=== PATIENT | female | born 1945 | race African-American/Black ===

== ENCOUNTER 2019-02-19 19:04 | Inpatient (IN) | payer OTHER ==
[2019-02-19 19:22] VITALS: BMI 22.6
--- NOTE | 2019-02-19 19:22 | PDOC ---
Rapid Medical Evaluation Medical Evaluation: 02/19/19 19:19 Pt presents for midsternal chest pain starting one week ago. The pain is intermittent. Last had the pain around 5pm today. Pain is worse laying down. Admits to mild associated shortness of breath Exam: NAD, S1S2 present rrr, (-) m/r/g Orders: cardiac work up Pt to proceed to the ER for further evaluation
[2019-02-19 20:19] VITALS: TEMP 98
[2019-02-19 20:33] LABS: BASO % 1.3 % (0-2.0); EOS % 2.6 % (0-4.5); HEMATOCRIT 41.5 % (32.4-45.2); HEMOGLOBIN 13.6 GM/dL (10.7-15.3); LYMPH % 48.8 % (8-40); MCH 31.3 pg (25.7-33.7); MCHC 32.7 g/dl (32.0-36.0); MEAN CELL VOLUME 95.8 fl (80-96); MEAN PLT VOLUME 8.3 fl (7.5-11.1); MONO % 11.6 % (3.8-10.2); NEUT % 35.7 % (42.8-82.8); PLATELET COUNT 265 K/MM3 (134-434); RBC 4.33 M/mm3 (3.60-5.2); RDW 14.1 % (11.6-15.6)
[2019-02-19 20:38] LABS: EPI CELLS 2.1 /HPF (0-5/HPF); HYALINE CASTS 4 /lpf (0-8); URINE APPEARANCE CLEAR; URINE BACTERIA 5.2 /hpf (NEGATIVE); URINE BILIRUBIN NEGATIVE (NEGATIVE); URINE COLOR YELLOW; URINE GLUCOSE (UA) NEGATIVE (NEGATIVE); URINE KETONE TRACE (NEGATIVE); URINE LEUK ESTERASE 1+ (NEGATIVE); URINE NITRITE NEGATIVE (NEGATIVE); URINE PROTEIN NEGATIVE (NEGATIVE); URINE RBC 1 /hpf (0-4); URINE WBC 2 /hpf (0-5)
[2019-02-19 20:57] LABS: INR 1.03 (0.83-1.09); PROTHROMBIN TIME (PATIENT) 12.2 SEC (9.7-13.0)
[2019-02-19 21:07] LABS: ALBUMIN 3.6 g/dl (3.4-5.0); ALK PHOS 98 U/L (45-117); ANION GAP 4 MMOL/L (8-16); BILIRUBIN,TOTAL 0.4 mg/dL (0.2-1); BLOOD UREA NITROGEN 13.8 mg/dL (7-18); CALCIUM 9.4 mg/dL (8.5-10.1); CHLORIDE 108 mmol/L (98-107); CO2 29 mmol/L (21-32); CREATININE 0.9 mg/dL (0.55-1.3); GLUCOSE,RANDOM 102 mg/dL (74-106); MAGNESIUM 2.5 mg/dL (1.8-2.4); POTASSIUM 4.7 mmol/L (3.5-5.1); SGOT/AST 20 U/L (15-37); SGPT/ALT 24 U/L (13-61); SODIUM 142 mmol/L (136-145); TOT PROT 7.2 g/dl (6.4-8.2)
--- NOTE | 2019-02-19 21:13 | PDOC ---
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 Pt states she has never felt this pain before, started suddenly, lasts for a couple hours and self resolves. Denies active current CP, palpitations, N/V/F/C, back pain, SOB, calf tenderness, recent travel, changes in bowel or bladder habits Past History - Past Medical History Allergies/Adverse Reactions: Allergies Allergy/AdvReac Type Severity Reaction Status Date / Time No Known Allergies Allergy Verified 02/19/19 19:19 Home Medications: Ambulatory Orders Metoprolol Tartrate 100 mg PO BID 02/19/19 COPD: No HTN: Yes Hypercholesterolemia: Yes - Surgical History Cardiac Surgery: Yes - Suicide/Smoking/Psychosocial Hx Smoking History: Former smoker Have you smoked in the past 12 months: No If you are a former smoker, when did you quit?: many years ago Information on smoking cessation initiated: No Review of Systems - Review of Systems Constitutional: No: Chills, Fever Respiratory: No: Shortness of Breath Cardiac (ROS): Yes: Chest Pain (described as pressure substernal. Denies active pain) ABD/GI: No: Constipated, Diarrhea, Nausea, Vomiting : No: Burning, Dysuria, Frequency, Flank Pain Musculoskeletal: No: Back Pain Integumentary: No: Pallor, Rash Neurological: No: Headache, Numbness, Paresthesia, Weakness *Physical Exam - Vital Signs Last Vital Signs Temp Pulse Resp BP Pulse Ox 98.0 F 65 18 121/53 L 96 02/19/19 20:15 02/19/19 20:15 02/19/19 20:15 02/19/19 20:15 02/19/19 19:19 - Physical Exam General Appearance: Yes: Nourished, Appropriately Dressed. No: Apparent Distress HEENT: positive: EOMI. negative: CHICA Neck: positive: Supple. negative: Carotid bruit Respiratory/Chest: positive: Lungs Clear, Normal Breath Sounds. negative: Respiratory Distress, Accessory Muscle Use Cardiovascular: positive: Regular Rhythm, Regular Rate, S1, S2. negative: Edema , JVD, Murmur Vascular Pulses: Dorsalis-Pedis (R): 4+, Doralis-Pedis (L): 4+ Gastrointestinal/Abdominal: positive: Flat, Soft. negative: Pulsatile Mass, Protuberent, Distended, Guarding, Rebound, Tenderness Musculoskeletal: negative: CVA Tenderness Extremity: positive: Normal Capillary Refill, Normal Inspection Integumentary: positive: Normal Color, Dry, Warm Neurologic: positive: Fully Oriented, Alert, Normal Mood/Affect, Normal Response Heart Score/ECG Review - History History: Moderately suspicious - Electrocardiogram EKG: Normal - Age Age: >/= 65 - Risk Factors Risk Factors Heart Score: Yes Hx Hypercholesterolemia, Yes Hx Hypertension, No Hx Diabetes, Yes Smoking History, No Positive family hx of cardiac disease, No Hx Obesity Based on the list above the patient has:: >/=3 risk factors or Hx atherosclerotic disease - Troponin Troponin: </= normal limit - Score Heart Score - Total: 5 ED Treatment Course - LABORATORY CBC & Chemistry Diagram: 02/19/19 16:04 02/19/19 16:04 - ADDITIONAL ORDERS Additional order review: Laboratory Results 02/19/19 02/19/19 02/19/19 16:23 16:04 16:04 PT with INR 12.20 INR 1.03 Sodium 142 Potassium 4.7 Chloride 108 H Carbon Dioxide 29 Anion Gap 4 L BUN 13.8 Creatinine 0.9 Est GFR (CKD-EPI)AfAm 73.52 Est GFR (CKD-EPI)NonAf 63.43 Random Glucose 102 Calcium 9.4 Magnesium 2.5 H Total Bilirubin 0.4 AST 20 ALT 24 Alkaline Phosphatase 98 Creatine Kinase 97 Troponin I < 0.02 Total Protein 7.2 Albumin 3.6 Urine Color Yellow Urine Appearance Clear Urine pH 5.0 Ur Specific [place] 1.032 Urine Protein Negative Urine Glucose (UA) Negative Urine Ketones Trace H Urine Blood Negative Urine Nitrite Negative Urine Bilirubin Negative Urine Urobilinogen 1.0 Ur Leukocyte Esterase 1+ H Urine WBC (Auto) 2 Urine RBC (Auto) 1 Urine Casts (Auto) 4 U Epithel Cells (Auto) 2.1 Urine Bacteria (Auto) 5.2 02/19/19 16:04 RBC 4.33 MCV 95.8 MCHC 32.7 RDW 14.1 MPV 8.3 Neutrophils % 35.7 L Lymphocytes % 48.8 H Monocytes % 11.6 H Eosinophils % 2.6 Basophils % 1.3 Medical Decision Making - Medical Decision Making 02/19/19 21:47 74 yo female pmh HTN, HLD, prior smoker (20 pack year HX, quit over 10 years ago ) 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 Pt states she has never felt this pain before, started suddenly, lasts for a couple hours and self resolves. Denies active current CP, palpitations, N/V/F/C, back pain, SOB, calf tenderness, recent travel, changes in bowel or bladder habits Vitals WNL Pt has no active CP. 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 states pt should be admitted to tele and will see her in the AM will admit pt for CP r/o acs Trops neg, will repeat 02/19/19 22:16 Pt accepted for admission. *DC/Admit/Observation/Transfer Diagnosis at time of Disposition: Chest pain - Discharge Dispostion Condition at time of disposition: Stable Decision to Admit order: Yes - Referrals Referrals: Shanice Logan MD [Primary Care Provider] - - Patient Instructions - Post Discharge Activity
--- NOTE | 2019-02-19 21:26 | PDOC ---
Attending Attestation - Resident Resident Name: YenyBang edl rio - ED Attending Attestation I have performed the following: I have examined & evaluated the patient, The case was reviewed & discussed with the resident, I agree w/resident's findings & plan - HPI HPI: 02/19/19 21:44 see resident hpi - Physicial Exam PE: 02/19/19 21:44 GENERAL: Awake, in no acute distress HEAD: No signs of trauma EYES: ENT:. Moist mucosa NECK: Normal ROM, LUNGS:. Normal work of breathing. HEART: Regular rate and rhythm, ABDOMEN: Soft, nondistended CHEST WALL: EXTREMITIES:. 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
--- NOTE | 2019-02-19 21:36 | CON.CARD ---
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 Pt states she has never felt this pain before, started suddenly, lasts for a couple hours and self resolves. Pt presents for midsternal chest pain starting one week ago. The pain is intermittent. Last had the pain around 5pm today. Pain is worse laying down. 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 ( based on ECG pattern ) HTN Hyperlipidemia Palpitations RBBB, LAFB, Exercise MIBI stress test was negative in September 2017 - History Source History Provided By: Patient, Medical Record - Past Medical History Cardio/Vascular: Yes: HTN, Hyperlipdemia - Smoking History Smoking history: Former smoker Have you smoked in the past 12 months: No If you are a former smoker, when did you quit?: many years ago Home Medications - Allergies Allergies/Adverse Reactions: Allergies Allergy/AdvReac Type Severity Reaction Status Date / Time No Known Allergies Allergy Verified 02/19/19 19:19 - Home Medications Home Medications: Ambulatory Orders Metoprolol Tartrate 100 mg PO BID 02/19/19 Review of Systems - Review of Systems Constitutional: reports: No Symptoms Eyes: reports: No Symptoms HENT: reports: No Symptoms Neck: reports: No Symptoms Cardiovascular: reports: Chest Pain Respiratory: reports: No Symptoms Gastrointestinal: reports: No Symptoms Genitourinary: reports: No Symptoms Breasts: reports: No Symptoms Reported Musculoskeletal: reports: No Symptoms Integumentary: reports: No Symptoms Neurological: reports: No Symptoms Endocrine: reports: No Symptoms Hematology/Lymphatic: reports: No Symptoms Psychiatric: reports: No Symptoms Vital Signs: Vital Signs Temperature 98.0 F 02/19/19 20:15 Pulse Rate 65 02/19/19 20:15 Respiratory Rate 18 02/19/19 20:15 Blood Pressure 121/53 L 02/19/19 20:15 O2 Sat by Pulse Oximetry (%) 96 02/19/19 19:19 Constitutional: Yes: Well Nourished, No Distress, Calm Eyes: Yes: WNL, Conjunctiva Clear, EOM Intact HENT: Yes: WNL, Atraumatic, Normocephalic Neck: Yes: WNL, Supple, Trachea Midline Respiratory: Yes: WNL, Regular, CTA Bilaterally Gastrointestinal: Yes: WNL, Normal Bowel Sounds Renal/: Yes: WNL Cardiovascular: Yes: WNL, Regular Rate and Rhythm Musculoskeletal: Yes: WNL Extremities: Yes: WNL Integumentary: Yes: WNL Neurological: Yes: WNL, Alert, Oriented ...Motor Strength: WNL Psychiatric: Yes: WNL, Alert, Oriented - Other Data Labs, Other Data: CBC, BMP 02/19/19 16:04 02/19/19 16:04 INR, PTT INR 1.03 (0.83-1.09) 02/19/19 16:04 Troponin, BNP 02/19/19 16:04 Troponin I < 0.02 Troponin, BNP 02/19/19 16:04 Troponin I < 0.02 Imaging - Results EKG: Image Reviewed (sr bifascicular block) Assessment/Plan cp sx htn hlp s/p asd repair plan; ASA r/o mi telemetry lipid profile
--- NOTE | 2019-02-19 23:20 | PN ---
Teaching Attending Note Name of Resident: Tabitha Gutierrez ATTENDING PHYSICIAN STATEMENT I saw and evaluated the patient. I reviewed the resident's note and discussed the case with the resident. I agree with the resident's findings and plan as documented. SUBJECTIVE: Patient is a 74 year old woman with PMH of HTN, HLD, Tobacco use, and Cardiac surgery as child ("to repair hole in the heart"), presents to the ER for 1 week of nonexertional intermittent chest pressure. Patient states she has never felt this pain before and it starts suddenly, lasts for a couple hours and self resolves. Pain is midsternal and is worse laying down. Admits to mild associated shortness of breath. Denies nausea, vomiting, diarrhea, abdominal pain, dysuria , headache or cough. No FH of premature CAD. Denies sick contacts, recent travel, alcohol abuse or illicit drug use. Stopped using statins on her PCP's orders, but does not know why. OBJECTIVE: Alert Vital Signs Period Temp Pulse Resp BP Sys/Hebert Pulse Ox Last 24 Hr 97.9 F-98.0 F 61-65 18-18 111-121/53-68 96 HEENT: No Jaundice, eye redness or discharge, PERRLA, EOMI. Normocephalic, atraumatic. External ears are normal and hearing is grossly intact. No nasal discharge. Neck: Supple, nontender. No palpable adenopathy or thyromegaly. No JVD Chest: Good effort. Clear to auscultation and percussion. Heart: Regular. No S3, rub or murmur Abdomen: Not distended, soft, nontender and no HSM. No rebound or guarding. Normal bowel sounds. Ext: Peripheral pulses intact. No leg edema. Skin: Warm and dry. No petechiae, rash or ecchymosis. Neuro: Alert. Oriented x3. CN 2-12 grossly intact. Sensation grossly intact in all four extremities and DTR are symmetric. Psych: Appropriate mood and affect. Good insight. Current Medications Generic Name Dose Route Start Last Admin Trade Name Freq PRN Reason Stop Dose Admin Aspirin 81 mg 02/20/19 23:04 Asa - PO 02/20/19 23:05 ONCE ONE Aspirin 162 mg 02/20/19 10:00 Asa - PO DAILY ELISABETH Enoxaparin Sodium 40 mg 02/20/19 10:00 Lovenox - SQ DAILY [facility] Home Medications Medication Instructions Recorded Metoprolol Tartrate 100 mg PO BID 02/19/19 Abnormal Lab Results 02/19/19 02/19/19 02/19/19 16:04 16:04 16:23 Absolute Neuts (auto) 1.4 L Neutrophils % 35.7 L Lymphocytes % 48.8 H Monocytes % 11.6 H Chloride 108 H Anion Gap 4 L Magnesium 2.5 H Urine Ketones Trace H Ur Leukocyte Esterase 1+ H ASSESSMENT AND PLAN: 1. Chest pain - Pain is atypical. EKG shows LVH and bifascicular block but no change from prior EKG and initial troponin is negative. Will admit to telemetry to rule out ACS, get ECHO and fasting lipids. Cardiology has been consulted. CXR is hyperinflated and she may have underlying pulmonary disease. Consult Pulmonary, get PFTs and if pulmonary disease is confirmed then she may need to be switched off Metoprolol. Will continue comprehensive care of all her comorbid conditions. 2. Hypertension - Restart suitable outpatient antihypertensive drugs when clinically appropriate. Revise regimen to ensure [id number] excellent BP control and eap counselor patient on the injurious effects of uncontrolled hypertension. Nonpharmacologic measures to control hypertension like weight loss , salt restriction and exercise discussed. Importance of adherence to treatment regimen and attainment of normotension emphasized. 3. DVT prophylaxis - Lovenox 40 mg SQ q 24 hours. 4. Advance directives - Full code
[2019-02-19] MEDS ORDERED: ASPIRIN 81 MG CHEWABLE TABLETS ONE (23:22)
--- NOTE | 2019-02-20 03:43 | HP ---
CHIEF COMPLAINT: Substernal chest pain for the past 1 week PCP: Dr. Logan, Shanice HISTORY OF PRESENT ILLNESS: This is a 74 year old female with PMH significant for HTN, HLD, and ASD repair as a teenager. She presented to the ER with complaints of substernal chest pain for the past 7 days. The pain is sudden in onset, not reproducible, non- exertional, occurs only when she lies down, 4/10 in intensity, described as a "dull pressure", intermittent in nature and occurring only when for a few minutes several times per day, non-radiating, with no recognized aggravating or alleviating factors. She has never had this kind of pain before, and her last episode was at 5PM today, lasting for a few minutes. She states that she suffers from chronic sinusitis, and develops frequent seasonal allergies, but has not suffered from any recent URTIs. She denies any associated fevers or chills, dizziness, light headedness, SOB, palpitations, nausea, vomiting, diarrhea, constipation, dysuria, urinary urgency or hesitancy. She denies any recent travel or sick contacts. ER course was notable for: (1) Trops negative x1 (2) EKG: bi-fascicular block, no ST changes, unchanged from previous EKG (3) given ASA 161mg Recent Travel: None PAST MEDICAL HISTORY: HTN: on Metoprolol HLD: was taking medication previously but has not been taking any recently PAST SURGICAL HISTORY: None Social History: Smoking: around half a pack per day for many years, quit over 10 years ago Alcohol: denies Drugs: denies Family History: Mother had HTN Father had CA (unsure what type) Brother had CA (unsure what type) Sister had CA (unsure what type) Allergies No Known Allergies Allergy (Verified 02/19/19 19:19) HOME MEDICATIONS: Home Medications Medication Instructions Recorded Metoprolol Tartrate 100 mg PO BID 02/19/19 REVIEW OF SYSTEMS CONSTITUTIONAL: Absent: fever, chills, diaphoresis, generalized weakness, malaise, loss of appetite, weight change HEENT: Absent: rhinorrhea, nasal congestion, throat pain, throat swelling, difficulty swallowing, mouth swelling, ear pain, eye pain, visual changes CARDIOVASCULAR: chest pain Absent: chest pain, syncope, palpitations, irregular heart rate, lightheadedness , peripheral edema RESPIRATORY: Absent: cough, shortness of breath, dyspnea with exertion, orthopnea, wheezing, stridor, hemoptysis GASTROINTESTINAL: Absent: abdominal pain, abdominal distension, nausea, vomiting, diarrhea, constipation, melena, hematochezia GENITOURINARY: Absent: dysuria, frequency, urgency, hesitancy, hematuria, flank pain, genital pain MUSCULOSKELETAL: Absent: myalgia, arthralgia, joint swelling, back pain, neck pain SKIN: Absent: rash, itching, pallor HEMATOLOGIC/IMMUNOLOGIC: Absent: easy bleeding, easy bruising, lymphadenopathy, frequent infections ENDOCRINE: Absent: unexplained weight gain, unexplained weight loss, heat intolerance, cold intolerance NEUROLOGIC: Absent: headache, focal weakness or paresthesias, dizziness, unsteady gait, seizure, mental status changes, bladder or bowel incontinence PSYCHIATRIC: Absent: anxiety, depression, suicidal or homicidal ideation, hallucinations. PHYSICAL EXAMINATION Vital Signs - 24 hr 02/19/19 02/19/19 02/20/19 19:19 20:15 00:44 Temperature 97.9 F 98.0 F Pulse Rate 61 Pulse Rate [ 65 60 Apical] Respiratory 18 18 18 Rate Blood Pressure 111/68 Blood Pressure 121/53 L 141/90 [Left Arm] O2 Sat by Pulse 96 95 Oximetry (%) GENERAL: Awake, alert, and fully oriented, in no acute distress. HEAD: Normal with no signs of trauma. EYES: Pupils equal, round and reactive to light, extraocular movements intact, sclera anicteric, conjunctiva clear. No lid lag. EARS, NOSE, THROAT: Ears normal, nares patent, oropharynx clear without exudates. Moist mucous membranes. NECK: Normal range of motion, supple without lymphadenopathy, JVD, or masses. LUNGS: Breath sounds equal, clear to auscultation bilaterally. No wheezes, and no crackles. No accessory muscle use. HEART: Regular rate and rhythm, normal S1 and S2 without murmur, rub or gallop. ABDOMEN: Soft, nontender, not distended, normoactive bowel sounds, no guarding, no rebound, no masses. No hepatomegaly or splenomegaly. MUSCULOSKELETAL: Normal range of motion at all joints. No bony deformities or tenderness. No CVA tenderness. UPPER EXTREMITIES: 2+ pulses, warm, well-perfused. No cyanosis. No clubbing. No peripheral edema. LOWER EXTREMITIES: 2+ pulses, warm, well-perfused. No calf tenderness. No peripheral edema. NEUROLOGICAL: Cranial nerves II-XII intact. Normal speech. Normal gait. PSYCHIATRIC: Cooperative. Good eye contact. Appropriate mood and affect. SKIN: Warm, dry, normal turgor, no rashes or lesions noted, normal capillary refill. Laboratory Results - last 24 hr 02/19/19 02/19/19 02/19/19 16:04 16:04 16:04 WBC 4.0 RBC 4.33 Hgb 13.6 Hct 41.5 MCV 95.8 MCH 31.3 MCHC 32.7 RDW 14.1 Plt Count 265 MPV 8.3 Absolute Neuts (auto) 1.4 L Neutrophils % 35.7 L Lymphocytes % 48.8 H Monocytes % 11.6 H Eosinophils % 2.6 Basophils % 1.3 Nucleated RBC % 0 PT with INR 12.20 INR 1.03 Sodium 142 Potassium 4.7 Chloride 108 H Carbon Dioxide 29 Anion Gap 4 L BUN 13.8 Creatinine 0.9 Est GFR (CKD-EPI)AfAm 73.52 Est GFR (CKD-EPI)NonAf 63.43 Random Glucose 102 Calcium 9.4 Magnesium 2.5 H Total Bilirubin 0.4 AST 20 ALT 24 Alkaline Phosphatase 98 Creatine Kinase 97 Troponin I < 0.02 Total Protein 7.2 Albumin 3.6 Urine Color Urine Appearance Urine pH Ur Specific [place] Urine Protein Urine Glucose (UA) Urine Ketones Urine Blood Urine Nitrite Urine Bilirubin Urine Urobilinogen Ur Leukocyte Esterase Urine WBC (Auto) Urine RBC (Auto) Urine Casts (Auto) U Epithel Cells (Auto) Urine Bacteria (Auto) 02/19/19 02/19/19 16:23 23:00 WBC RBC Hgb Hct MCV MCH MCHC RDW Plt Count MPV Absolute Neuts (auto) Neutrophils % Lymphocytes % Monocytes % Eosinophils % Basophils % Nucleated RBC % PT with INR INR Sodium Potassium Chloride Carbon Dioxide Anion Gap BUN Creatinine Est GFR (CKD-EPI)AfAm Est GFR (CKD-EPI)NonAf Random Glucose Calcium Magnesium Total Bilirubin AST ALT Alkaline Phosphatase Creatine Kinase Troponin I < 0.02 Total Protein Albumin Urine Color Yellow Urine Appearance Clear Urine pH 5.0 Ur Specific [place] 1.032 Urine Protein Negative Urine Glucose (UA) Negative Urine Ketones Trace H Urine Blood Negative Urine Nitrite Negative Urine Bilirubin Negative Urine Urobilinogen 1.0 Ur Leukocyte Esterase 1+ H Urine WBC (Auto) 2 Urine RBC (Auto) 1 Urine Casts (Auto) 4 U Epithel Cells (Auto) 2.1 Urine Bacteria (Auto) 5.2 ASSESSMENT/PLAN: 74 year old female with PMH significant for HTN, HLD, and ASD repair as a teenager. She presented to the ER with complaints of substernal chest pain for the past 7 days. #Chest pain - ACS unlikely (trops negative, EKG normal) but will trend trops to r/o - Lipid panel ordered - ASA 162mg administered in ER, started on 81mg daily - Echo, will check for pericardial etiology - Smoking history + mild SOB + hyperinflated lungs on CXR suggests possible pulmonary cause - Pulm consult placed - PFTs outpatient recommended #Hypermagnesia - Marginally elevated - Monitor #Hx of HTN - On Metoprolol, if pulm disease confirmed may have to switch #Hx of HLD - Lipid panel ordered - Will wait for results, may resume statins #FEN - Monitor Mg - Na controlled diet #DVT PE - Lovenox 40mg #Code Status - Full Code Visit type - Emergency Visit Emergency Visit: Yes ED Registration Date: 02/19/19 Care time: The patient presented to the Emergency Department on the above date and was hospitalized for further evaluation of their emergent condition. - New Patient This patient is new to me today: Yes Date on this admission: 02/20/19 - Critical Care Critical Care patient: No ATTENDING PHYSICIAN STATEMENT I saw and evaluated the patient. I reviewed the resident's note and discussed the case with the resident. I agree with the resident's findings and plan as documented. SUBJECTIVE: OBJECTIVE: ASSESSMENT AND PLAN:
[2019-02-20 07:30] LABS: HEMATOCRIT 39.9 % (32.4-45.2); HEMOGLOBIN 13.3 GM/dL (10.7-15.3); MCH 32.2 pg (25.7-33.7); MCHC 33.5 g/dl (32.0-36.0); MEAN CELL VOLUME 96.2 fl (80-96); MEAN PLT VOLUME 8.4 fl (7.5-11.1); PLATELET COUNT 251 K/MM3 (134-434); RBC 4.15 M/mm3 (3.60-5.2); RDW 13.7 % (11.6-15.6); WHITE BLOOD COUNT 3.8 K/mm3 (4.0-10.0)
[2019-02-20 07:34] LABS: CALCIUM 9.6 mg/dL (8.5-10.1); CREATININE 0.8 mg/dL (0.55-1.3); POTASSIUM 4.3 mmol/L (3.5-5.1)
[2019-02-20 07:36] LABS: CHOLESTEROL 195 mg/dL (50-200); HDL CHOLESTEROL 56 mg/dL (40-60); TRIGLYCERIDES 74 mg/dL (0-150)
[2019-02-20] MEDS ORDERED: ASPIRIN 81 MG CHEWABLE TABLETS PO SCH (10:00)
[2019-02-20] MEDS ORDERED: ENOXAPARIN NA (PORCINE) 40 MG/0.4 ML DISP.SYRIN SQ SCH (10:00)
[2019-02-20 10:45] VITALS: BP 134/97; PULSE 73
--- NOTE | 2019-02-20 13:18 | ECHO ---
Name: JN BENSON Exam:Adult Echocardiogram Study Date: 02/20/2019 08:28 AM Age: 74 yrs Reason For Study: Chest pain Height: 62 in Weight: 124 lb BSA: 1.6 m2 MMode/2D Measurements & Calculations IVSd: 0.87 cm Ao root diam: 2.7 cm LVIDd: 3.3 cm LA dimension: 2.4 cm LVIDs: 2.2 cm LVPWd: 0.95 cm LVPWs: 1.1 cm EDV(Teich): 45.6 ml ESV(Teich): 16.7 ml LVOT diam: 2.0 cm RV S Antonio: 12.4 cm/sec Doppler Measurements & Calculations MV E max antonio: 51.9 cm/sec Ao V2 max: 120.1 cm/sec MV A max antonio: 76.6 cm/sec Ao max P.8 mmHg MV E/A: 0.68 Ao V2 mean: 80.5 cm/sec MV dec time: 0.15 sec Ao mean P.1 mmHg Ao V2 VTI: 23.5 cm [place](I,D): 2.3 cm2 [place](V,D): 2.6 cm2 LV V1 max P.9 mmHg SV(LVOT): 54.9 ml LV V1 mean P.1 mmHg LV V1 max: 97.2 cm/sec LV V1 mean: 63.7 cm/sec LV V1 VTI: 17.3 cm TR max antonio: 264.1 cm/sec PA V2 max: 108.0 cm/sec TR max P.9 mmHg PA max P.7 mmHg RVSP(TR): 37.9 mmHg Med Peak E' Antonio: 4.6 cm/sec RAP systole: 10.0 mmHg Med E/e': 11.4 Lat Peak E' Antonio: 7.1 cm/sec Lat E/e': 7.3 Procedure A complete two-dimensional transthoracic echocardiogram was performed (2D, M-mode, Doppler and color flow Doppler). Left Ventricle The left ventricular size, thickness and function are normal. The left ventricular ejection fraction is normal. Ejection Fraction = 60-65%. The left ventricular wall motion is normal. Right Ventricle The right ventricle is normal in size and function. Atria Normal left and right atrial size and function. Mitral Valve There is no mitral regurgitation noted. Tricuspid Valve There is trace tricuspid regurgitation. Right ventricular systolic pressure is normal. Aortic Valve The aortic valve is trileaflet. No hemodynamically significant valvular aortic stenosis. No aortic regurgitation is present. Pulmonic Valve There is no pulmonic valvular regurgitation. Great Vessels The aortic root is normal size. Pericardium/Pleura There is no pericardial effusion. Interpretation Summary The left ventricular size, thickness and function are normal The right ventricle is normal in size and function. There is trace tricuspid regurgitation. MD Shade Enamorado 02/20/2019 01:17 PM
--- NOTE | 2019-02-20 14:37 | PN ---
Progress Note, Physician History of Present Illness: 74-year-old black woman with hx HTN, hyperlipidemia, now admitted with central chest pain occurring for days after she "lifted something too heavy". (Until 2 weeks ago, when the pain began, pt had been going to the gym 3x/wk and doing mostly cardio workout, with no chest pain or dyspnea) Stress MIBI in office 2018: no ishemia. 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 Moser - Objective Vital Signs: Vital Signs Temperature 98.0 F 02/19/19 20:15 Pulse Rate 73 02/20/19 10:44 Respiratory Rate 16 02/20/19 10:44 Blood Pressure 134/97 02/20/19 10:44 O2 Sat by Pulse Oximetry (%) 100 02/20/19 10:44 Constitutional: Yes: Well Nourished, Calm Eyes: Yes: WNL HENT: Yes: WNL Neck: Yes: WNL Cardiovascular: Yes: WNL Respiratory: Yes: WNL Gastrointestinal: Yes: WNL ...Rectal Exam: Yes: WNL, Deferred Genitourinary: Yes: WNL Breast(s): Yes: WNL Musculoskeletal: Yes: WNL Extremities: Yes: WNL Edema: Yes Peripheral Pulses WNL: Yes Integumentary: Yes: WNL Neurological: Yes: WNL ...Motor Strength: WNL Psychiatric: Yes: WNL Labs: CBC, BMP 02/20/19 06:29 02/20/19 06:29 INR, PTT INR 1.03 (0.83-1.09) 02/19/19 16:04 Abnormal Lab Results 02/19/19 02/19/19 02/19/19 16:04 16:04 16:23 WBC MCV Absolute Neuts (auto) 1.4 L Neutrophils % 35.7 L Lymphocytes % 48.8 H Monocytes % 11.6 H Chloride 108 H Anion Gap 4 L Magnesium 2.5 H Total LDL Cholesterol Urine Ketones Trace H Ur Leukocyte Esterase 1+ H 02/20/19 02/20/19 02/20/19 06:29 06:29 06:29 WBC 3.8 L MCV 96.2 H Absolute Neuts (auto) Neutrophils % Lymphocytes % Monocytes % Chloride Anion Gap 5 L Magnesium Total LDL Cholesterol 126 H Urine Ketones Ur Leukocyte Esterase - ....Imaging Chest X-ray: Image Reviewed EKG: Image Reviewed Other: Image Reviewed (telemetry: NSR; no arrhythmias) Problem List - Problems (1) Bifascicular block Code(s): I45.2 - BIFASCICULAR BLOCK (2) Hyperlipidemia Assessment/Plan: on atorvastatin. Code(s): E78.5 - HYPERLIPIDEMIA, UNSPECIFIED (3) HTN (hypertension) Code(s): I10 - ESSENTIAL (PRIMARY) HYPERTENSION (4) Atypical chest pain Assessment/Plan: TNI < 0.02 x 3. EKG: unchanged (bifascicular block). Hx negative stress MIBI within the past year. From cardiac standpoint, pt may be followed as an outpatient. She will see Dr. Moser; if stress test is needed, it may be done as an outpatient. Code(s): R07.89 - OTHER CHEST PAIN
--- NOTE | 2019-02-20 15:27 | EKG ---
Test Reason : Blood Pressure : / mmHG Vent. Rate : 079 BPM Atrial Rate : 079 BPM P-R Int : 202 ms QRS Dur : 148 ms QT Int : 426 ms P-R-T Axes : 084 -72 079 degrees QTc Int : 488 ms NORMAL SINUS RHYTHM POSSIBLE LEFT ATRIAL ENLARGEMENT RIGHT BUNDLE BRANCH BLOCK LEFT ANTERIOR FASCICULAR BLOCK BIFASCICULAR BLOCK LEFT VENTRICULAR HYPERTROPHY WITH REPOLARIZATION ABNORMALITY CANNOT RULE OUT SEPTAL INFARCT , AGE UNDETERMINED ABNORMAL ECG NO PREVIOUS ECGS AVAILABLE Confirmed by DENNIS REIS MD ([id number]) on 02/20/2019 3:27:22 PM Referred By: Confirmed By:DENNIS REIS MD
--- NOTE | 2019-02-20 16:00 | PN ---
Teaching Attending Note Name of Resident: Eusebia Phillips ATTENDING PHYSICIAN STATEMENT I saw and evaluated the patient. I reviewed the resident's note and discussed the case with the resident. I agree with the resident's findings and plan as documented. SUBJECTIVE: Patient is a 74yo female with PMHx of HTN, HLD, Tobacco use, and Cardiac surgery as child, presents to the ER for 1 week hx of non-exertional intermittent chest pressure. Denies any chest pain at this time. OBJECTIVE: Vital Signs Temperature 98.0 F 02/19/19 20:15 Pulse Rate 73 02/20/19 10:44 Respiratory Rate 16 02/20/19 10:44 Blood Pressure 134/97 02/20/19 10:44 O2 Sat by Pulse Oximetry (%) 100 02/20/19 10:44 GENERAL: The patient is awake, alert, and fully oriented, in no acute distress. HEAD: Normal with no signs of trauma. EYES: PERRL, extraocular movements intact, sclera anicteric, conjunctiva clear. ENT: Ears normal, oropharynx clear without exudates, moist mucous membranes. NECK: Trachea midline, full range of motion, supple. LUNGS: Breath sounds equal, clear to auscultation bilaterally, no wheezes, no crackles, no accessory muscle use. HEART: Regular rate and rhythm, S1, S2 without murmur, rub or gallop. ABDOMEN: Soft, nontender, nondistended, normoactive bowel sounds, no guarding, no rebound, no hepatosplenomegaly, no masses. EXTREMITIES: 2+ pulses, warm, well-perfused, no edema. NEUROLOGICAL: Cranial nerves II through XII grossly intact. Normal speech, gait not observed. PSYCH: Normal mood, normal affect. SKIN: Warm, dry, normal turgor, no rashes or lesions noted CBCD WBC 3.8 K/mm3 (4.0-10.0) L 02/20/19 06:29 RBC 4.15 M/mm3 (3.60-5.2) 02/20/19 06:29 Hgb 13.3 GM/dL (10.7-15.3) 02/20/19 06:29 Hct 39.9 % (32.4-45.2) 02/20/19 06:29 MCV 96.2 fl (80-96) H 02/20/19 06:29 MCHC 33.5 g/dl (32.0-36.0) 02/20/19 06:29 RDW 13.7 % (11.6-15.6) 02/20/19 06:29 Plt Count 251 K/MM3 (134-434) 02/20/19 06:29 MPV 8.4 fl (7.5-11.1) 02/20/19 06:29 CMP Sodium 140 mmol/L (136-145) 02/20/19 06:29 Potassium 4.3 mmol/L (3.5-5.1) 02/20/19 06:29 Chloride 106 mmol/L (98-107) 02/20/19 06:29 Carbon Dioxide 29 mmol/L (21-32) 02/20/19 06:29 Anion Gap 5 MMOL/L (8-16) L 02/20/19 06:29 BUN 13.0 mg/dL (7-18) 02/20/19 06:29 Creatinine 0.8 mg/dL (0.55-1.3) 02/20/19 06:29 Random Glucose 86 mg/dL (74-106) 02/20/19 06:29 Calcium 9.6 mg/dL (8.5-10.1) 02/20/19 06:29 Total Bilirubin 0.4 mg/dL (0.2-1) 02/19/19 16:04 AST 20 U/L (15-37) 02/19/19 16:04 ALT 24 U/L (13-61) 02/19/19 16:04 Alkaline Phosphatase 98 U/L (45-117) 02/19/19 16:04 Total Protein 7.2 g/dl (6.4-8.2) 02/19/19 16:04 Albumin 3.6 g/dl (3.4-5.0) 02/19/19 16:04 CARDIAC ENZYMES Creatine Kinase 97 U/L (26-192) 02/19/19 16:04 Troponin I < 0.02 ng/ml (0.00-0.05) 02/20/19 07:40 Home Medications Medication Instructions Recorded Metoprolol Tartrate 100 mg PO BID 02/19/19 Aspirin [ASA -] 81 mg PO DAILY #30 tab.chew 02/20/19 Atorvastatin Ca [Lipitor] 20 mg PO HS #30 tablet 02/20/19 EKG: Image Reviewed Other: Image Reviewed (telemetry: NSR; no arrhythmias) Stress MIBI in office 2018: no ishemia.Chest X-ray: Image Reviewed ASSESSMENT AND PLAN: 74-year-old black woman with hx HTN, hyperlipidemia, now admitted with atypical chest pain occurring after lifting something too heavy. # Atypical chest pain: Hx negative stress MIBI within the past year, TNI < 0.02 x 3. # Bifascicular block: EKG: unchanged (bifascicular block). # Hyperlipidemia: on atorvastatin. # HTN (hypertension) discharge patient home, follow up with cardio in a week .
--- NOTE | 2019-02-20 18:12 | DS ---
Physical Exam: SUBJECTIVE: Patient seen and examined in the ED. Stated she was feeling well and only wanted to come in to be sure that everything was ok. She was reporting reproducible chest pain for the last 7 days that began after she lifted a heavy object. OBJECTIVE: Vital Signs Period Temp Pulse Resp BP Sys/Hebert Pulse Ox Last 24 Hr 97.9 F-98.0 F 60-77 14-18 111-141/53-100 95-100 PHYSICAL EXAM GENERAL: The patient is awake, alert, and fully oriented, in no acute distress. HEAD: Normal with no signs of trauma. EYES: PERRL, extraocular movements intact, sclera anicteric, conjunctiva clear. ENT: Ears normal, oropharynx clear without exudates, moist mucous membranes. NECK: Trachea midline, full range of motion, supple. LUNGS: Breath sounds equal, clear to auscultation bilaterally, no wheezes, no crackles, no accessory muscle use. HEART: Regular rate and rhythm, S1, S2 without murmur, rub or gallop. ABDOMEN: Soft, nontender, nondistended, normoactive bowel sounds, no guarding, no rebound, no hepatosplenomegaly, no masses. EXTREMITIES: 2+ pulses, warm, well-perfused, no edema. NEUROLOGICAL: Cranial nerves II through XII grossly intact. Normal speech, gait not observed. PSYCH: Normal mood, normal affect. SKIN: Warm, dry, normal turgor, no rashes or lesions noted LABS Laboratory Results - last 24 hr 02/19/19 02/19/19 02/19/19 16:04 16:04 16:04 WBC 4.0 RBC 4.33 Hgb 13.6 Hct 41.5 MCV 95.8 MCH 31.3 MCHC 32.7 RDW 14.1 Plt Count 265 MPV 8.3 Absolute Neuts (auto) 1.4 L Neutrophils % 35.7 L Lymphocytes % 48.8 H Monocytes % 11.6 H Eosinophils % 2.6 Basophils % 1.3 Nucleated RBC % 0 PT with INR 12.20 INR 1.03 Sodium 142 Potassium 4.7 Chloride 108 H Carbon Dioxide 29 Anion Gap 4 L BUN 13.8 Creatinine 0.9 Est GFR (CKD-EPI)AfAm 73.52 Est GFR (CKD-EPI)NonAf 63.43 Random Glucose 102 Calcium 9.4 Magnesium 2.5 H Total Bilirubin 0.4 AST 20 ALT 24 Alkaline Phosphatase 98 Creatine Kinase 97 Troponin I < 0.02 Total Protein 7.2 Albumin 3.6 Triglycerides Cholesterol Total LDL Cholesterol HDL Cholesterol TSH Urine Color Urine Appearance Urine pH Ur Specific [place] Urine Protein Urine Glucose (UA) Urine Ketones Urine Blood Urine Nitrite Urine Bilirubin Urine Urobilinogen Ur Leukocyte Esterase Urine WBC (Auto) Urine RBC (Auto) Urine Casts (Auto) U Epithel Cells (Auto) Urine Bacteria (Auto) 02/19/19 02/19/19 02/20/19 16:23 23:00 06:29 WBC 3.8 L RBC 4.15 Hgb 13.3 Hct 39.9 MCV 96.2 H MCH 32.2 MCHC 33.5 RDW 13.7 Plt Count 251 MPV 8.4 Absolute Neuts (auto) Neutrophils % Lymphocytes % Monocytes % Eosinophils % Basophils % Nucleated RBC % PT with INR INR Sodium Potassium Chloride Carbon Dioxide Anion Gap BUN Creatinine Est GFR (CKD-EPI)AfAm Est GFR (CKD-EPI)NonAf Random Glucose Calcium Magnesium Total Bilirubin AST ALT Alkaline Phosphatase Creatine Kinase Troponin I < 0.02 Total Protein Albumin Triglycerides Cholesterol Total LDL Cholesterol HDL Cholesterol TSH Urine Color Yellow Urine Appearance Clear Urine pH 5.0 Ur Specific [place] 1.032 Urine Protein Negative Urine Glucose (UA) Negative Urine Ketones Trace H Urine Blood Negative Urine Nitrite Negative Urine Bilirubin Negative Urine Urobilinogen 1.0 Ur Leukocyte Esterase 1+ H Urine WBC (Auto) 2 Urine RBC (Auto) 1 Urine Casts (Auto) 4 U Epithel Cells (Auto) 2.1 Urine Bacteria (Auto) 5.2 02/20/19 02/20/19 02/20/19 06:29 06:29 07:40 WBC RBC Hgb Hct MCV MCH MCHC RDW Plt Count MPV Absolute Neuts (auto) Neutrophils % Lymphocytes % Monocytes % Eosinophils % Basophils % Nucleated RBC % PT with INR INR Sodium 140 Potassium 4.3 Chloride 106 Carbon Dioxide 29 Anion Gap 5 L BUN 13.0 Creatinine 0.8 Est GFR (CKD-EPI)AfAm 84.77 Est GFR (CKD-EPI)NonAf 73.14 Random Glucose 86 Calcium 9.6 Magnesium Total Bilirubin AST ALT Alkaline Phosphatase Creatine Kinase Troponin I < 0.02 Total Protein Albumin Triglycerides 74 Cholesterol 195 Total LDL Cholesterol 126 H HDL Cholesterol 56 TSH 1.17 Urine Color Urine Appearance Urine pH Ur Specific [place] Urine Protein Urine Glucose (UA) Urine Ketones Urine Blood Urine Nitrite Urine Bilirubin Urine Urobilinogen Ur Leukocyte Esterase Urine WBC (Auto) Urine RBC (Auto) Urine Casts (Auto) U Epithel Cells (Auto) Urine Bacteria (Auto) HOSPITAL COURSE: Date of Admission:02/19/19 74 year old female with PMH significant for HTN, HLD, and ASD repair as a teenager. She presented to the ER with complaints of substernal chest pain for the past 7 days after lifting something too heavy. Workup included: Stress MIBI in office 2018: no ishemia. EKG shows a bifascicular block, patient's direct support professional home health was contacted by the emergency department resident who confirmed that this is an old finding Troponins were negative x3 Chest x-ray shows no acute abnormality She was evaluated by cardiology and found to be stable for follow up as an outpatient. The patient was discharged home. Date of Discharge: 02/20/19 Minutes to complete discharge: 40 Discharge Summary Reason For Visit: CHEST PAIN Condition: Stable - Instructions Diet, Activity, Other Instructions: You were in the hospital because you were having on going chest discomfort. We measured your cardiac enzymes and did an EKG both of which were normal. You were seen by your direct support professional home health, your symptoms improved. Please resume all of your medications in addition to the following: - Lipitor 20mg by mouth daily, for cholesterol - Aspirin 81mg by mouth daily Have your liver enzymes checked within 2-3 weeks Please follow up with Dr. Logan, your primary care doctor, within 1 week. Please follow up with Dr. Duque, your direct support professional home health, within 1 week. If you have chest pain or shortness of breath please come back to the Emergency Department immediately. Referrals: Eric Duque MD [Staff Physician] - 1 Week Shanice Logan MD [Primary Care Provider] - 1 Week Disposition: HOME - Home Medications Comprehensive Discharge Medication List: Ambulatory Orders Metoprolol Tartrate 100 mg PO BID 02/19/19 Aspirin [ASA -] 81 mg PO DAILY #30 tab.chew 02/20/19 Atorvastatin Ca [Lipitor] 20 mg PO HS #30 tablet 02/20/19 This patient is new to me today: Yes Date on this admission: 02/25/19 Emergency Visit: Yes ED Registration Date: 02/19/19 Care time: The patient presented to the Emergency Department on the above date and was hospitalized for further evaluation of their emergent condition. Critical Care patient: No - Discharge Referral Referred to [facility] No ATTENDING PHYSICIAN STATEMENT I saw and evaluated the patient. I reviewed the resident's note and discussed the case with the resident. I agree with the resident's findings and plan as documented. SUBJECTIVE: OBJECTIVE: ASSESSMENT AND PLAN:
[2019-02-20] MEDS ORDERED: ATORVASTATIN CA 20 MG TABLET (FP) PO SCH (22:00)
[2019-02-20] MEDS ORDERED: ASPIRIN 81 MG CHEWABLE TABLETS PO ONE (23:04)
== END 2019-02-20 10:49 | disposition home or self-care (01) | DRG 313 ==
LOC: JER 19:04 → JERBED 21:51
PROVIDERS: ADMIT Internal Medicine; ATTEND Internal Medicine
DX: R07.89 Other chest pain (principal); I45.2 Bifascicular block; I10 Essential (primary) hypertension; E78.5 Hyperlipidemia, unspecified; Z87.891 Personal history of nicotine dependence; E83.41 Hypermagnesemia
CPT/HCPCS: 36415; 71046-TC-FY; 80048; 80053; 80061; 81003; 82550; 83721; 83735; 84443; 84484; 85025; 85027; 85610; 93005; 93010; 93306-TC; 99285-25

== ENCOUNTER 2023-04-05 19:56 | Inpatient (IN) | payer OTHER ==
[2023-04-05] MEDS ORDERED: ACETAMINOPHEN 1000 MG/100 ML BAG IVPB ONE (20:22)
[2023-04-05] MEDS ORDERED: FUROSEMIDE 40 MG/4 ML INJECTABLE VIAL IVPUSH ONE (20:46)
[2023-04-05] MEDS ORDERED: FUROSEMIDE 40 MG/4 ML INJECTABLE VIAL ONE (21:21)
[2023-04-05] MEDS ORDERED: ACETAMINOPHEN INJECTION 100 ML IVPB ONE (21:21)
[2023-04-05 21:28] LABS: VENOUS BASE EXCESS 1.4 mmol/L (-2-2); VENOUS O2 SATURATION 30.8 % (70-80); VENOUS PH 7.208 (7.310-7.410)
[2023-04-05 21:29] LABS: HEMOGLOBIN 15.8 GM/dL (10.7-15.3); MCH 29.1 pg (25.7-33.7); MCHC 31.6 g/dl (32.0-36.0); MEAN CELL VOLUME 91.9 fl (80-96); MEAN PLT VOLUME 8.7 fl (7.5-11.1); PLATELET COUNT 298 10^3/uL (134-434); RBC 5.44 M/mm3 (3.60-5.2); RDW 16.1 % (11.6-15.6); WHITE BLOOD COUNT 3.4 K/mm3 (4.0-10.0)
[2023-04-05 21:32] LABS: VENOUS PCO2 83.9 mmHg (38-52)
[2023-04-05] MEDS ORDERED: methylPREDNISolone NA SUCC 125 MG/2 ML VIAL IVPB ONE (21:34)
[2023-04-05] MEDS ORDERED: ALBUTEROL SO4 2.5/IPRATROPIUM 0.5 INH SOL 3 ML VIAL.NEB. NEB ONE ×2 (21:35→21:48)
[2023-04-05 21:36] LABS: INR 1.09 (0.83-1.09); PROTHROMBIN TIME (PATIENT) 12.6 SEC (9.7-13.0)
[2023-04-05 21:38] LABS: ACTIVATED PTT 30.2 SECONDS (25.2-36.5)
[2023-04-05] MEDS ORDERED: methylPREDNISolone NA SUCC 125 MG/2 ML VIAL ONE (21:48)
[2023-04-05 21:54] LABS: ALBUMIN 3.3 g/dl (3.4-5.0); BLOOD UREA NITROGEN 20.2 mg/dL (7-18); CALCIUM 9.2 mg/dL (8.5-10.1); MAGNESIUM 2.4 mg/dL (1.8-2.4)
[2023-04-05 21:57] LABS: CREATININE 0.8 mg/dL (0.55-1.3)
[2023-04-05 21:59] LABS: BILIRUBIN,TOTAL 0.5 mg/dL (0.2-1); TOT PROT 7.6 g/dl (6.4-8.2)
[2023-04-05] MEDS ORDERED: ASPIRIN 81 MG CHEWABLE TABLETS PO ONE (22:23)
[2023-04-05] MEDS ORDERED: ATORVASTATIN CA 80 MG TABLET (FP) PO ONE (22:26)
[2023-04-05] MEDS ORDERED: ATORVASTATIN CA 80 MG TABLET (FP) ONE (22:30)
[2023-04-05] MEDS ORDERED: ASPIRIN 325 MG TABLET ONE (22:30)
[2023-04-05] MEDS ORDERED: CLOPIDOGREL BISULFATE 300 MG TABLET PO ONE (23:02)
[2023-04-05] MEDS ORDERED: HEPARIN NA (PORCINE) 5,000 UNITS/ML 1ML VIAL IVPUSH PRN ×3 (23:03→23:15)
[2023-04-05] MEDS ORDERED: HEPARIN NA (PORCINE) 5,000 UNITS/ML 1ML VIAL IVPUSH ONE (23:03)
[2023-04-05] MEDS ORDERED: HEPARIN - 25,000 UNIT in SODIUM CHLORIDE 495 ML IV SCH (23:15)
[2023-04-05] MEDS ORDERED: CLOPIDOGREL BISULFATE 300 MG TABLET ONE (23:19)
[2023-04-05] MEDS ORDERED: HEPARIN INFUSION - 25,000 UNITS/500 ML INFUS.BAG IVPB ONE (23:19)
[2023-04-05] MEDS: HEPARIN INFUSION - 25,000 UNITS/500 ML INFUS.BAG IVPB SCH (23:34)
[2023-04-06 06:43] LABS: ARTERIAL BLD GAS O2 SATURATION 98.8 % (95-98); ARTERIAL BLOOD GAS BASE EXCESS -1.3 mmol/L (-2-2); ARTERIAL BLOOD GAS PO2 158.7 mmHg (80-100); ARTERIAL BLOOD GAS pH 7.271 (7.350-7.450)
[2023-04-06 07:04] LABS: ALLENS TEST POSITIVE; VENT MODE S/T; VENT RATE 18
[2023-04-06 07:41] LABS: HEMOGLOBIN 14.1 GM/dL (10.7-15.3); MCH 29.4 pg (25.7-33.7); MCHC 31.3 g/dl (32.0-36.0); MEAN CELL VOLUME 93.9 fl (80-96); PLATELET COUNT 226 10^3/uL (134-434); RBC 4.79 M/mm3 (3.60-5.2); RDW 15.7 % (11.6-15.6); WHITE BLOOD COUNT 3.1 K/mm3 (4.0-10.0)
[2023-04-06] MEDS: FUROSEMIDE 40 MG/4 ML INJECTABLE VIAL IVPUSH SCH (09:28)
[2023-04-06] MEDS: methylPREDNISolone NA SUCC 40 MG/1 ML VIAL IVPUSH SCH ×2 (09:28→22:02)
[2023-04-06] MEDS: CLOPIDOGREL BISULFATE 75 MG TABLET (FP) PO SCH (09:29)
[2023-04-06] MEDS: ASPIRIN 81 MG CHEWABLE TABLETS PO SCH (09:29)
[2023-04-06 11:51] LABS: CHOLESTEROL 199 mg/dL (50-200)
[2023-04-06 11:53] LABS: LDL CHOLESTEROL (ONLY SJRH) 144 mg/dL (5-100)
[2023-04-06 11:54] LABS: HDL CHOLESTEROL 54 mg/dL (40-60)
[2023-04-06] MEDS ORDERED: LEVALBUTEROL HCL 0.31 MG/3 ML VIAL.NEB IH PRN (16:37)
[2023-04-06 18:00] LABS: ARTERIAL BLD GAS O2 SATURATION 98.5 % (95-98); ARTERIAL BLOOD GAS BASE EXCESS 2.6 mmol/L (-2-2); ARTERIAL BLOOD GAS PO2 140.4 mmHg (80-100); ARTERIAL BLOOD GAS pH 7.319 (7.350-7.450)
[2023-04-06 18:08] LABS: ALLENS TEST POSITIVE
[2023-04-06 18:10] LABS: VENT RATE 18
[2023-04-07] MEDS: HEPARIN INFUSION - 25,000 UNITS/500 ML INFUS.BAG IVPB SCH (02:44)
[2023-04-07] MEDS: HEPARIN NA (PORCINE) 5,000 UNITS/ML 1ML VIAL IVPUSH PRN ×2 (02:48→17:52)
[2023-04-07] MEDS: methylPREDNISolone NA SUCC 40 MG/1 ML VIAL IVPUSH SCH ×2 (09:30→22:25)
[2023-04-07] MEDS: FUROSEMIDE 40 MG/4 ML INJECTABLE VIAL IVPUSH SCH (09:30)
[2023-04-07] MEDS: ASPIRIN 81 MG CHEWABLE TABLETS PO SCH (09:30)
[2023-04-07] MEDS: CLOPIDOGREL BISULFATE 75 MG TABLET (FP) PO SCH (09:30)
[2023-04-07] MEDS: METOPROLOL TARTRATE 50 MG TABLET (FP) PO SCH (22:24)
[2023-04-08] MEDS: CLOPIDOGREL BISULFATE 75 MG TABLET (FP) PO SCH (09:41)
[2023-04-08] MEDS: ASPIRIN 81 MG CHEWABLE TABLETS PO SCH (09:41)
[2023-04-08] MEDS: FUROSEMIDE 40 MG/4 ML INJECTABLE VIAL IVPUSH SCH (09:41)
[2023-04-08] MEDS: METOPROLOL TARTRATE 50 MG TABLET (FP) PO SCH ×2 (09:41→22:18)
[2023-04-08] MEDS: methylPREDNISolone NA SUCC 40 MG/1 ML VIAL IVPUSH SCH ×2 (09:42→22:18)
[2023-04-08] MEDS: ACETAMINOPHEN 325 MG TABLET (FP) PO PRN ×2 (12:24→18:49)
[2023-04-08] MEDS: ATORVASTATIN CA 80 MG TABLET (FP) PO SCH (22:18)
[2023-04-09] MEDS: CLOPIDOGREL BISULFATE 75 MG TABLET (FP) PO SCH (11:39)
[2023-04-09] MEDS: methylPREDNISolone NA SUCC 40 MG/1 ML VIAL IVPUSH SCH ×2 (11:39→21:54)
[2023-04-09] MEDS: ASPIRIN 81 MG CHEWABLE TABLETS PO SCH (11:39)
[2023-04-09] MEDS: FUROSEMIDE 40 MG/4 ML INJECTABLE VIAL IVPUSH SCH (11:40)
[2023-04-09] MEDS: METOPROLOL TARTRATE 50 MG TABLET (FP) PO SCH (11:40)
[2023-04-09 15:47] VITALS: BMI 19.7
[2023-04-09] MEDS: ATORVASTATIN CA 80 MG TABLET (FP) PO SCH (21:54)
[2023-04-10] MEDS: AMINO ACIDS/PROTEIN HYDROLYS 30 ML LIQUID.PKT PO SCH (08:53)
[2023-04-10] MEDS: methylPREDNISolone NA SUCC 40 MG/1 ML VIAL IVPUSH SCH ×2 (09:45→22:21)
[2023-04-10] MEDS: FUROSEMIDE 40 MG/4 ML INJECTABLE VIAL IVPUSH SCH (09:45)
[2023-04-10] MEDS: CLOPIDOGREL BISULFATE 75 MG TABLET (FP) PO SCH (09:46)
[2023-04-10] MEDS: ASPIRIN 81 MG CHEWABLE TABLETS PO SCH (09:46)
[2023-04-10] MEDS: MULTIVITAMINS (DAILY MVI) TABLET (FP) PO SCH (09:48)
[2023-04-10] MEDS: ASCORBIC ACID 250 MG TABLET (FP) PO SCH (09:48)
[2023-04-10] MEDS: ATORVASTATIN CA 80 MG TABLET (FP) PO SCH (22:20)
[2023-04-11] MEDS: AMINO ACIDS/PROTEIN HYDROLYS 30 ML LIQUID.PKT PO SCH (08:31)
[2023-04-11] MEDS: SACUBITRIL/VALSARTAN 24 MG-26 MG TABLET PO SCH ×2 (10:38→21:14)
[2023-04-11] MEDS: methylPREDNISolone NA SUCC 40 MG/1 ML VIAL IVPUSH SCH ×2 (10:39→21:14)
[2023-04-11] MEDS: FUROSEMIDE 40 MG/4 ML INJECTABLE VIAL IVPUSH SCH (10:39)
[2023-04-11] MEDS: ASCORBIC ACID 250 MG TABLET (FP) PO SCH (10:39)
[2023-04-11] MEDS: MULTIVITAMINS (DAILY MVI) TABLET (FP) PO SCH (10:39)
[2023-04-11] MEDS: ASPIRIN 81 MG CHEWABLE TABLETS PO SCH (11:03)
[2023-04-11] MEDS: CLOPIDOGREL BISULFATE 75 MG TABLET (FP) PO SCH (11:03)
[2023-04-11] MEDS: ATORVASTATIN CA 80 MG TABLET (FP) PO SCH (21:14)
[2023-04-12] MEDS: AMINO ACIDS/PROTEIN HYDROLYS 30 ML LIQUID.PKT PO SCH (11:42)
[2023-04-12] MEDS: CLOPIDOGREL BISULFATE 75 MG TABLET (FP) PO SCH (11:43)
[2023-04-12] MEDS: ASCORBIC ACID 250 MG TABLET (FP) PO SCH (11:43)
[2023-04-12] MEDS: ASPIRIN 81 MG CHEWABLE TABLETS PO SCH (11:43)
[2023-04-12] MEDS: MULTIVITAMINS (DAILY MVI) TABLET (FP) PO SCH (11:43)
[2023-04-12] MEDS: methylPREDNISolone NA SUCC 40 MG/1 ML VIAL IVPUSH SCH ×2 (11:43→21:32)
[2023-04-12] MEDS: FUROSEMIDE 40 MG/4 ML INJECTABLE VIAL IVPUSH SCH (11:43)
[2023-04-12] MEDS: SACUBITRIL/VALSARTAN 24 MG-26 MG TABLET PO SCH ×2 (11:43→21:31)
[2023-04-12] MEDS: ATORVASTATIN CA 80 MG TABLET (FP) PO SCH (21:31)
[2023-04-13] MEDS: AMINO ACIDS/PROTEIN HYDROLYS 30 ML LIQUID.PKT PO SCH (09:56)
[2023-04-13] MEDS: SACUBITRIL/VALSARTAN 24 MG-26 MG TABLET PO SCH ×2 (09:56→21:47)
[2023-04-13] MEDS: ASCORBIC ACID 250 MG TABLET (FP) PO SCH (09:56)
[2023-04-13] MEDS: MULTIVITAMINS (DAILY MVI) TABLET (FP) PO SCH (09:56)
[2023-04-13] MEDS: methylPREDNISolone NA SUCC 40 MG/1 ML VIAL IVPUSH SCH ×2 (09:57→21:49)
[2023-04-13] MEDS: FUROSEMIDE 40 MG/4 ML INJECTABLE VIAL IVPUSH SCH (09:57)
[2023-04-13] MEDS: ASPIRIN 81 MG CHEWABLE TABLETS PO SCH (09:57)
[2023-04-13] MEDS: CLOPIDOGREL BISULFATE 75 MG TABLET (FP) PO SCH (09:57)
[2023-04-13] MEDS: ATORVASTATIN CA 80 MG TABLET (FP) PO SCH (21:48)
[2023-04-14] MEDS: MULTIVITAMINS (DAILY MVI) TABLET (FP) PO SCH (09:38)
[2023-04-14] MEDS: CLOPIDOGREL BISULFATE 75 MG TABLET (FP) PO SCH (09:38)
[2023-04-14] MEDS: AMINO ACIDS/PROTEIN HYDROLYS 30 ML LIQUID.PKT PO SCH (09:38)
[2023-04-14] MEDS: ASPIRIN 81 MG CHEWABLE TABLETS PO SCH (09:38)
[2023-04-14] MEDS: ASCORBIC ACID 250 MG TABLET (FP) PO SCH (09:38)
[2023-04-14] MEDS: SACUBITRIL/VALSARTAN 24 MG-26 MG TABLET PO SCH ×2 (09:38→21:41)
[2023-04-14] MEDS: methylPREDNISolone NA SUCC 40 MG/1 ML VIAL IVPUSH SCH ×2 (09:38→21:41)
[2023-04-14] MEDS: FUROSEMIDE 40 MG/4 ML INJECTABLE VIAL IVPUSH SCH (09:39)
[2023-04-14 09:50] VITALS: RESP 18
[2023-04-14 13:27] LABS: BASO % 0.2 % (0-2.0); EOS % 0.1 % (0-4.5); HEMATOCRIT 43.6 % (32.4-45.2); HEMOGLOBIN 13.4 GM/dL (10.7-15.3); LYMPH % 1.7 % (8-40); MCHC 30.7 g/dl (32.0-36.0); MEAN CELL VOLUME 94.5 fl (80-96); MEAN PLT VOLUME 8.4 fl (7.5-11.1); MONO % 3.3 % (3.8-10.2); NEUT % 94.7 % (42.8-82.8); PLATELET COUNT 300 10^3/uL (134-434); RBC 4.62 M/mm3 (3.60-5.2); RDW 15.1 % (11.6-15.6); WHITE BLOOD COUNT 15.5 K/mm3 (4.0-10.0)
[2023-04-14 13:47] LABS: POTASSIUM 4.5 mmol/L (3.5-5.1)
[2023-04-14 13:52] LABS: BLOOD UREA NITROGEN 34.9 mg/dL (7-18); CALCIUM 8.8 mg/dL (8.5-10.1)
[2023-04-14 13:55] LABS: CREATININE 0.8 mg/dL (0.55-1.3)
[2023-04-14 13:57] LABS: BILIRUBIN,TOTAL 0.3 mg/dL (0.2-1)
[2023-04-14 13:58] LABS: ALBUMIN 2.3 g/dl (3.4-5.0); TOT PROT 5.5 g/dl (6.4-8.2)
[2023-04-14 14:01] LABS: ANISOCYTOSIS 1+; MACROCYTOSIS 0; TARGET CELLS 1+
[2023-04-14] MEDS: ATORVASTATIN CA 80 MG TABLET (FP) PO SCH (21:41)
[2023-04-15 04:44] VITALS: BP 101/60; PULSE 73; TEMP 98.6
== END 2023-04-15 02:30 | disposition short-term general hospital (02) | DRG 280 ==
LOC: JER 19:56 → JERBED 22:15 → J4W 04-06 05:48
PROVIDERS: ADMIT Internal Medicine; ATTEND Internal Medicine
DX: I21.4 Non-ST elevation (NSTEMI) myocardial infarction (principal); I50.23 Acute on chronic systolic (congestive) heart failure; J96.02 Acute respiratory failure with hypercapnia; J96.01 Acute respiratory failure with hypoxia; J44.1 Chronic obstructive pulmonary disease with (acute) exacerbation; I45.2 Bifascicular block; E44.0 Moderate protein-calorie malnutrition; E78.5 Hyperlipidemia, unspecified; I25.10 Atherosclerotic heart disease of native coronary artery without angina pectoris; I11.0 Hypertensive heart disease with heart failure
CPT/HCPCS: 0241U-QW; 36415; 36600; 70450-TC; 71045-TC-FY; 76604; 80053; 80061; 82803; 83735; 83880; 84484; 85025; 85027; 85610; 85730; 87040; 87635; 93005; 93010; 93306-TC; 93308; 94660; 97163-GP; 99291; J1644

== ENCOUNTER 2023-10-23 09:53 | Inpatient (IN) | payer OTHER ==
[2023-10-23 10:00] VITALS: BMI 21.9
[2023-10-23] MEDS: ALBUTEROL SO4 2.5/IPRATROPIUM 0.5 INH SOL 3 ML VIAL.NEB. NEB SCH ×2 (10:21→16:00)
[2023-10-23 10:50] LABS: VENOUS BASE EXCESS 11.5 mmol/L (-2-2); VENOUS O2 SATURATION 26.5 % (70-80); VENOUS PH 7.292 (7.310-7.410)
[2023-10-23 10:52] LABS: VENOUS PCO2 88.7 mmHg (38-52)
[2023-10-23] MEDS ORDERED: MAGNESIUM SULFATE IN WATER 2 GM/50 ML IVPB IVPB ONE (10:52)
[2023-10-23] MEDS ORDERED: ALBUTEROL SO4 2.5/IPRATROPIUM 0.5 INH SOL 3 ML VIAL.NEB. NEB ONE (10:52)
[2023-10-23] MEDS ORDERED: methylPREDNISolone NA SUCC 125 MG/2 ML VIAL ONE (10:52)
[2023-10-23 10:57] LABS: BASO % 2.4 % (0-2.0); EOS % 1.1 % (0-4.5); HEMATOCRIT 39.7 % (32.4-45.2); HEMOGLOBIN 12.6 GM/dL (10.7-15.3); LYMPH % 36.7 % (8-40); MCH 30.3 pg (25.7-33.7); MCHC 31.6 g/dl (32.0-36.0); MEAN CELL VOLUME 95.9 fl (80-96); MEAN PLT VOLUME 8.6 fl (7.5-11.1); MONO % 10.4 % (3.8-10.2); NEUT % 49.4 % (42.8-82.8); PLATELET COUNT 241 10^3/uL (134-434); RBC 4.14 M/mm3 (3.60-5.2); RDW 17.6 % (11.6-15.6); WHITE BLOOD COUNT 3.1 K/mm3 (4.0-10.0)
[2023-10-23] MEDS: methylPREDNISolone NA SUCC 125 MG/2 ML VIAL IVPUSH ONE (10:59)
[2023-10-23 11:08] LABS: POTASSIUM 4.6 mmol/L (3.5-5.1)
[2023-10-23] MEDS: MAGNESIUM SULF 50% (8.12 MEQ/2 ML-1 GM VIAL) IVPB ONE (11:12)
[2023-10-23 11:20] LABS: CALCIUM 9.4 mg/dL (8.5-10.1)
[2023-10-23 11:21] LABS: ALBUMIN 3.5 g/dl (3.4-5.0); BLOOD UREA NITROGEN 18.3 mg/dL (7-18)
[2023-10-23 11:24] LABS: CREATININE 0.6 mg/dL (0.55-1.3)
[2023-10-23 11:25] LABS: TOT PROT 7.3 g/dl (6.4-8.2)
[2023-10-23 11:26] LABS: BILIRUBIN,TOTAL 0.6 mg/dL (0.2-1); MAGNESIUM 2.2 mg/dL (1.8-2.4)
[2023-10-23 11:29] LABS: N-TERMINAL BNP 1420.4 pg/ml (5-450)
[2023-10-23] MEDS ORDERED: SACUBITRIL/VALSARTAN 24 MG-26 MG TABLET ONE (14:12)
[2023-10-23] MEDS ORDERED: metoPROLOL SUCCINATE 25 MG TAB.SR.24H (FP) PO ONE (14:12)
[2023-10-23] MEDS ORDERED: ATORVASTATIN CA 80 MG TABLET (FP) ONE ×2 (14:12→14:13)
[2023-10-23] MEDS ORDERED: CLOPIDOGREL BISULFATE 75 MG TABLET (FP) ONE (14:13)
[2023-10-23] MEDS: CLOPIDOGREL BISULFATE 75 MG TABLET (FP) PO SCH (14:21)
[2023-10-23] MEDS: ATORVASTATIN CA 80 MG TABLET (FP) PO SCH (14:21)
[2023-10-23] MEDS: SACUBITRIL/VALSARTAN 24 MG-26 MG TABLET PO SCH (14:21)
[2023-10-23] MEDS: metoPROLOL SUCCINATE 25 MG TAB.SR.24H (FP) PO SCH (14:21)
[2023-10-23] MEDS: methylPREDNISolone NA SUCC 40 MG/1 ML VIAL IVPB SCH (18:21)
[2023-10-23] MEDS ORDERED: ATORVASTATIN CA 20 MG TABLET (FP) PO SCH (22:00)
[2023-10-23] MEDS ORDERED: PATIENT'S OWN MEDICATION (NON-FORMULARY) (Metoprolol Tartrate [Metoprolol Tartrate] 100 MG PO SCH (22:00)
[2023-10-23 22:01] LABS: ARTERIAL BLD GAS O2 SATURATION 78.5 % (95-98); ARTERIAL BLOOD GAS BASE EXCESS 7.1 mmol/L (-2-2); ARTERIAL BLOOD GAS PO2 50.6 mmHg (80-100); ARTERIAL BLOOD GAS pH 7.266 (7.350-7.450)
[2023-10-23 22:02] LABS: ALLENS TEST POSITIVE
[2023-10-23] MEDS: BUDESONIDE/FORMETEROL FUMARATE 160/4.5 mcg INHALER IH SCH (22:06)
[2023-10-24 07:10] LABS: BASO % 0.8 % (0-2.0); HEMATOCRIT 40.6 % (32.4-45.2); HEMOGLOBIN 12.9 GM/dL (10.7-15.3); MCH 30.6 pg (25.7-33.7); MCHC 31.8 g/dl (32.0-36.0); MEAN CELL VOLUME 96.5 fl (80-96); MONO % 2.6 % (3.8-10.2); NEUT % 77.6 % (42.8-82.8); PLATELET COUNT 245 10^3/uL (134-434); RDW 17.5 % (11.6-15.6); WHITE BLOOD COUNT 2.6 K/mm3 (4.0-10.0)
[2023-10-24 07:31] LABS: POTASSIUM 4.8 mmol/L (3.5-5.1)
[2023-10-24 07:35] LABS: BLOOD UREA NITROGEN 19.1 mg/dL (7-18); CALCIUM 9.1 mg/dL (8.5-10.1)
[2023-10-24 07:36] LABS: ALBUMIN 3.5 g/dl (3.4-5.0)
[2023-10-24 07:38] LABS: CREATININE 0.7 mg/dL (0.55-1.3)
[2023-10-24 07:40] LABS: BILIRUBIN,TOTAL 0.7 mg/dL (0.2-1); TOT PROT 7.2 g/dl (6.4-8.2)
[2023-10-24] MEDS: ENOXAPARIN NA (PORCINE) 40 MG/0.4 ML DISP.SYRIN SQ SCH (09:45)
[2023-10-24] MEDS: ASPIRIN 81 MG CHEWABLE TABLETS PO SCH (09:46)
[2023-10-25 13:23] VITALS: RESP 18
[2023-10-25 14:34] VITALS: BP 102/66; PULSE 98; TEMP 98.4
== END 2023-10-25 16:53 | disposition short-term general hospital (02) | DRG 189 ==
LOC: JER 09:53 → JERBED 11:37 → J4W 16:15
PROVIDERS: ADMIT Internal Medicine; ATTEND Internal Medicine
DX: J96.22 Acute and chronic respiratory failure with hypercapnia (principal); J44.1 Chronic obstructive pulmonary disease with (acute) exacerbation; I50.22 Chronic systolic (congestive) heart failure; J96.21 Acute and chronic respiratory failure with hypoxia; I25.10 Atherosclerotic heart disease of native coronary artery without angina pectoris
CPT/HCPCS: 0241U-QW; 36415; 36600; 71045-TC-FY; 80053; 82550; 82553; 82803; 83605; 83690; 83735; 83880; 84100; 84484; 85025; 93005; 93010; 93306-TC; 94640; 94660; 99291

== ENCOUNTER 2024-04-08 19:16 | Inpatient (IN) | payer OTHER ==
[2024-04-08] MEDS ORDERED: methylPREDNISolone NA SUCC 125 MG/2 ML VIAL ONE (20:48)
[2024-04-08 20:52] LABS: VENOUS BASE EXCESS 22.9 mmol/L (-2-2); VENOUS PH 7.308 (7.310-7.410)
[2024-04-08] MEDS ORDERED: ALBUTEROL SO4 2.5/IPRATROPIUM 0.5 INH SOL 3 ML VIAL.NEB. NEB ONE (20:54)
[2024-04-08 20:56] LABS: VENOUS PCO2 113.4 mmHg (38-52)
[2024-04-08 21:08] LABS: EOS % 0.8 % (0-4.5); HEMATOCRIT 38.6 % (32.4-45.2); HEMOGLOBIN 12.2 GM/dL (10.7-15.3); LYMPH % 22.5 % (8-40); MCH 31.3 pg (25.7-33.7); MCHC 31.5 g/dl (32.0-36.0); MEAN CELL VOLUME 99.5 fl (80-96); MEAN PLT VOLUME 10.2 fl (7.5-11.1); MONO % 11.3 % (3.8-10.2); NEUT % 64.4 % (42.8-82.8); PLATELET COUNT 187 10^3/uL (134-434); RBC 3.88 M/mm3 (3.60-5.2); RDW 16.7 % (11.6-15.6); WHITE BLOOD COUNT 2.7 K/mm3 (4.0-10.0)
[2024-04-08] MEDS: ALBUTEROL SO4 2.5/IPRATROPIUM 0.5 INH SOL 3 ML VIAL.NEB. NEB ONE (21:09)
[2024-04-08] MEDS: methylPREDNISolone NA SUCC 125 MG/2 ML VIAL IVPB ONE (21:09)
[2024-04-08] MEDS ORDERED: CEFTRIAXONE 1 GM/50 ML BAG ONE (21:10)
[2024-04-08 21:11] LABS: POTASSIUM 3.6 mmol/L (3.5-5.1)
[2024-04-08 21:13] LABS: ALBUMIN 3.8 g/dl (3.4-5.0); BLOOD UREA NITROGEN 18.9 mg/dL (7-18); CALCIUM 9.5 mg/dL (8.5-10.1)
[2024-04-08 21:16] LABS: CREATININE 0.6 mg/dL (0.55-1.3)
[2024-04-08] MEDS: CEFTRIAXONE 1,000 MG in DEXTROSE 5%-WATER - 50 ML IVPB ONE (21:16)
[2024-04-08 21:18] LABS: BILIRUBIN,TOTAL 0.9 mg/dL (0.2-1)
[2024-04-08] MEDS ORDERED: MAGNESIUM SULF 50% (8.12 MEQ/2 ML-1 GM VIAL) ONE (21:43)
[2024-04-08] MEDS ORDERED: MAGNESIUM 1GM/D5W - 1 GM/100 ML IVPB IVPB ONE (21:45)
[2024-04-08] MEDS: MAGNESIUM 1GM/D5W - 1 GM/100 ML IVPB IVPB ONE (22:04)
[2024-04-08] MEDS ORDERED: DOCUSATE SODIUM 100 MG CAPSULE (FP) PO PRN (22:42)
[2024-04-08 23:28] LABS: POTASSIUM 3.3 mmol/L (3.5-5.1)
[2024-04-08 23:29] LABS: CALCIUM 9.4 mg/dL (8.5-10.1)
[2024-04-08 23:30] LABS: BLOOD UREA NITROGEN 20.1 mg/dL (7-18)
[2024-04-08 23:33] LABS: CREATININE 0.8 mg/dL (0.55-1.3)
[2024-04-09 01:08] LABS: ARTERIAL BLD GAS O2 SATURATION 92.7 % (95-98); ARTERIAL BLOOD GAS BASE EXCESS 24.5 mmol/L (-2-2); ARTERIAL BLOOD GAS PO2 76.6 mmHg (80-100); ARTERIAL BLOOD GAS pH 7.313 (7.350-7.450)
[2024-04-09 01:09] LABS: ALLENS TEST POSITIVE
[2024-04-09] MEDS ORDERED: ALBUTEROL SO4 2.5/IPRATROPIUM 0.5 INH SOL 3 ML VIAL.NEB. NEB ONE ×4 (01:16→16:33)
[2024-04-09] MEDS: ALBUTEROL SO4 2.5/IPRATROPIUM 0.5 INH SOL 3 ML VIAL.NEB. NEB PRN (01:25)
[2024-04-09] MEDS ORDERED: methylPREDNISolone NA SUCC 40 MG/1 ML VIAL ONE ×3 (04:23→18:34)
[2024-04-09] MEDS: methylPREDNISolone NA SUCC 40 MG/1 ML VIAL IVPUSH SCH (04:42)
[2024-04-09 07:17] LABS: HEMATOCRIT 37.8 % (32.4-45.2); HEMOGLOBIN 11.7 GM/dL (10.7-15.3); MCH 31.2 pg (25.7-33.7); MCHC 30.9 g/dl (32.0-36.0); MEAN CELL VOLUME 101.2 fl (80-96); MEAN PLT VOLUME 9.5 fl (7.5-11.1); PLATELET COUNT 165 10^3/uL (134-434); RBC 3.73 M/mm3 (3.60-5.2); RDW 16.6 % (11.6-15.6); WHITE BLOOD COUNT 3.2 K/mm3 (4.0-10.0)
[2024-04-09] MEDS ORDERED: ASPIRIN 81 MG CHEWABLE TABLETS ONE (09:29)
[2024-04-09] MEDS ORDERED: CLOPIDOGREL BISULFATE 75 MG TABLET (FP) ONE (09:32)
[2024-04-09] MEDS: CLOPIDOGREL BISULFATE 75 MG TABLET (FP) PO SCH (09:49)
[2024-04-09] MEDS: ASPIRIN 81 MG CHEWABLE TABLETS PO SCH (09:49)
[2024-04-09] MEDS: ALBUTEROL SO4 2.5/IPRATROPIUM 0.5 INH SOL 3 ML VIAL.NEB. NEB SCH (09:49)
[2024-04-09 09:53] LABS: ANISOCYTOSIS 2+; MACROCYTOSIS 2+
[2024-04-09 10:25] LABS: ARTERIAL BLD GAS O2 SATURATION 98.9 % (95-98); ARTERIAL BLOOD GAS BASE EXCESS 23.7 mmol/L (-2-2); ARTERIAL BLOOD GAS PO2 192.9 mmHg (80-100); ARTERIAL BLOOD GAS pH 7.233 (7.350-7.450)
[2024-04-09 10:30] LABS: ALLENS TEST POSITIVE
[2024-04-09] MEDS: ATORVASTATIN CA 80 MG TABLET (FP) PO SCH (21:25)
[2024-04-09] MEDS: AZITHROMYCIN IVPB 500 MG/250 ML BAG IVPB SCH (23:01)
[2024-04-09] MEDS: BUDESONIDE/FORMETEROL FUMARATE 160/4.5 mcg INHALER IH SCH (23:01)
[2024-04-10 05:32] LABS: ARTERIAL BLD GAS O2 SATURATION 95.9 % (95-98); ARTERIAL BLOOD GAS BASE EXCESS 23.6 mmol/L (-2-2); ARTERIAL BLOOD GAS PO2 92.8 mmHg (80-100)
[2024-04-10 05:35] LABS: ALLENS TEST POSITIVE; VENT RATE RR12
[2024-04-10 08:57] LABS: HEMATOCRIT 33.7 % (32.4-45.2); HEMOGLOBIN 10.8 GM/dL (10.7-15.3); MCH 31.8 pg (25.7-33.7); MCHC 31.9 g/dl (32.0-36.0); MEAN CELL VOLUME 99.6 fl (80-96); MEAN PLT VOLUME 9.7 fl (7.5-11.1); PLATELET COUNT 159 10^3/uL (134-434); RBC 3.38 M/mm3 (3.60-5.2); RDW 16.3 % (11.6-15.6); WHITE BLOOD COUNT 7.1 K/mm3 (4.0-10.0)
[2024-04-10 09:15] LABS: CHLORIDE 94 mmol/L (98-107); POTASSIUM 4.9 mmol/L (3.5-5.1); SODIUM 145 mmol/L (136-145)
[2024-04-10 09:17] LABS: CALCIUM 9.3 mg/dL (8.5-10.1); GLUCOSE,RANDOM 117 mg/dL (74-106)
[2024-04-10 09:18] LABS: ALBUMIN 3.1 g/dl (3.4-5.0); BLOOD UREA NITROGEN 19.9 mg/dL (7-18)
[2024-04-10 09:20] LABS: CREATININE 0.6 mg/dL (0.55-1.3)
[2024-04-10 09:21] LABS: SGOT/AST 42 U/L (15-37); SGPT/ALT 42 U/L (13-61)
[2024-04-10 09:23] LABS: ANION GAP 6 mmol/L (4-13); BILIRUBIN,TOTAL 0.6 mg/dL (0.2-1); CO2 > 45 mmol/L (21-32)
[2024-04-10 09:27] LABS: ALK PHOS 128 U/L (45-117)
[2024-04-10 09:41] LABS: ANISOCYTOSIS 1+; MACROCYTOSIS 1+
[2024-04-10] MEDS: HEPARIN NA (PORCINE) 5,000 UNITS/ML 1ML VIAL SQ SCH (10:10)
[2024-04-11] MEDS: CARVEDILOL 3.125 MG TABLET (FP) PO SCH (15:08)
[2024-04-11] MEDS: ACETAMINOPHEN 325 MG TABLET (FP) PO PRN (22:01)
[2024-04-12] MEDS: metoPROLOL SUCCINATE 25 MG TAB.SR.24H (FP) PO SCH (10:12)
[2024-04-12 12:01] LABS: ARTERIAL BLD GAS O2 SATURATION 98.5 % (95-98); ARTERIAL BLOOD GAS BASE EXCESS 19.9 mmol/L (-2-2); ARTERIAL BLOOD GAS PO2 155.9 mmHg (80-100); ARTERIAL BLOOD GAS pH 7.254 (7.350-7.450)
[2024-04-12 12:02] LABS: ALLENS TEST POSITIVE
[2024-04-12] MEDS: AMINO ACIDS/PROTEIN HYDROLYS 30 ML LIQUID.PKT PO SCH (18:02)
[2024-04-12] MEDS: ASCORBIC ACID 250 MG TABLET (FP) PO SCH (18:03)
[2024-04-12] MEDS: MULTIVITAMINS (DAILY MVI) TABLET (FP) PO SCH (18:03)
[2024-04-13 11:25] LABS: BASO % 0.2 % (0-2.0); HEMATOCRIT 32.4 % (32.4-45.2); HEMOGLOBIN 10.2 GM/dL (10.7-15.3); LYMPH % 12.6 % (8-40); MCH 31.4 pg (25.7-33.7); MCHC 31.4 g/dl (32.0-36.0); MEAN CELL VOLUME 99.9 fl (80-96); MEAN PLT VOLUME 9.5 fl (7.5-11.1); MONO % 9.9 % (3.8-10.2); NEUT % 77.3 % (42.8-82.8); PLATELET COUNT 159 10^3/uL (134-434); RBC 3.24 M/mm3 (3.60-5.2); RDW 15.5 % (11.6-15.6); WHITE BLOOD COUNT 3.7 K/mm3 (4.0-10.0)
[2024-04-13 11:51] LABS: CHLORIDE 89 mmol/L (98-107); POTASSIUM 4.9 mmol/L (3.5-5.1); SODIUM 140 mmol/L (136-145)
[2024-04-13 11:53] LABS: CALCIUM 9.5 mg/dL (8.5-10.1)
[2024-04-13 11:54] LABS: ALBUMIN 2.9 g/dl (3.4-5.0); BLOOD UREA NITROGEN 22.7 mg/dL (7-18); GLUCOSE,RANDOM 111 mg/dL (74-106)
[2024-04-13 11:57] LABS: CREATININE 0.5 mg/dL (0.55-1.3); SGOT/AST 43 U/L (15-37); SGPT/ALT 58 U/L (13-61)
[2024-04-13 11:58] LABS: ANION GAP 6 mmol/L (4-13); BILIRUBIN,TOTAL 0.5 mg/dL (0.2-1); CO2 > 45 mmol/L (21-32)
[2024-04-13 11:59] LABS: TOT PROT 5.6 g/dl (6.4-8.2)
[2024-04-13 12:00] LABS: ALK PHOS 132 U/L (45-117)
[2024-04-14 08:01] LABS: BASO % 0.4 % (0-2.0); HEMATOCRIT 34.6 % (32.4-45.2); HEMOGLOBIN 10.9 GM/dL (10.7-15.3); LYMPH % 8.9 % (8-40); MCH 31.2 pg (25.7-33.7); MCHC 31.6 g/dl (32.0-36.0); MEAN CELL VOLUME 98.5 fl (80-96); MEAN PLT VOLUME 9.2 fl (7.5-11.1); MONO % 3.4 % (3.8-10.2); NEUT % 87.3 % (42.8-82.8); PLATELET COUNT 166 10^3/uL (134-434); RBC 3.51 M/mm3 (3.60-5.2); RDW 15.1 % (11.6-15.6); WHITE BLOOD COUNT 3.7 K/mm3 (4.0-10.0)
[2024-04-14 08:10] LABS: CHLORIDE 87 mmol/L (98-107); SODIUM 138 mmol/L (136-145)
[2024-04-14 08:19] LABS: ALBUMIN 3.1 g/dl (3.4-5.0); BLOOD UREA NITROGEN 24.1 mg/dL (7-18); CALCIUM 9.4 mg/dL (8.5-10.1); GLUCOSE,RANDOM 139 mg/dL (74-106)
[2024-04-14 08:21] LABS: CREATININE 0.6 mg/dL (0.55-1.3); SGOT/AST 47 U/L (15-37); SGPT/ALT 79 U/L (13-61)
[2024-04-14 08:23] LABS: BILIRUBIN,TOTAL 0.6 mg/dL (0.2-1)
[2024-04-14 08:24] LABS: ALK PHOS 149 U/L (45-117)
[2024-04-14 08:28] LABS: ANION GAP 5 mmol/L (4-13); CO2 > 45 mmol/L (21-32)
[2024-04-15] MEDS ORDERED: ALPRAZolam 0.25 MG TABLET PO PRN (10:59)
[2024-04-15] MEDS: metoPROLOL SUCCINATE 25 MG TAB.SR.24H (FP) PO ONE (11:04)
[2024-04-15] MEDS: HYDROCORTISONE 0.5% TOPICAL CREAM 30 GM TUBE TP SCH (12:13)
[2024-04-16 08:44] LABS: BASO % 0.2 % (0-2.0); HEMATOCRIT 34.4 % (32.4-45.2); HEMOGLOBIN 11.2 GM/dL (10.7-15.3); LYMPH % 12.9 % (8-40); MCH 31.7 pg (25.7-33.7); MCHC 32.7 g/dl (32.0-36.0); MEAN PLT VOLUME 9.5 fl (7.5-11.1); MONO % 4.6 % (3.8-10.2); NEUT % 82.3 % (42.8-82.8); PLATELET COUNT 174 10^3/uL (134-434); RBC 3.54 M/mm3 (3.60-5.2); RDW 15.3 % (11.6-15.6); WHITE BLOOD COUNT 3.9 K/mm3 (4.0-10.0)
[2024-04-16 08:53] LABS: CHLORIDE 88 mmol/L (98-107); POTASSIUM 5.1 mmol/L (3.5-5.1); SODIUM 136 mmol/L (136-145)
[2024-04-16 09:01] LABS: BLOOD UREA NITROGEN 21.7 mg/dL (7-18); CALCIUM 9.6 mg/dL (8.5-10.1); GLUCOSE,RANDOM 140 mg/dL (74-106)
[2024-04-16 09:02] LABS: ANION GAP 3 mmol/L (4-13); CO2 > 45 mmol/L (21-32)
[2024-04-16 09:04] LABS: CREATININE 0.5 mg/dL (0.55-1.3); SGOT/AST 50 U/L (15-37); SGPT/ALT 100 U/L (13-61)
[2024-04-16 09:06] LABS: TOT PROT 5.6 g/dl (6.4-8.2)
[2024-04-16 09:07] LABS: ALK PHOS 143 U/L (45-117); BILIRUBIN,TOTAL 0.7 mg/dL (0.2-1)
[2024-04-16] MEDS: metoPROLOL SUCCINATE 25 MG TAB.SR.24H (FP) PO SCH (09:50)
[2024-04-17] MEDS ORDERED: guaiFENesin 200 MG/10 ML 10 ML UNIT-DOSE CUPS PO PRN (11:55)
[2024-04-17] MEDS: metoPROLOL SUCCINATE 25 MG TAB.SR.24H (FP) PO ONE (17:34)
[2024-04-17 18:36] LABS: CHOLESTEROL 157 mg/dL (50-200)
[2024-04-17 18:37] LABS: LDL CHOLESTEROL (ONLY SJRH) 86 mg/dL (5-100)
[2024-04-17 18:38] LABS: HDL CHOLESTEROL 62 mg/dL (40-60)
[2024-04-18] MEDS: metoPROLOL SUCCINATE 25 MG TAB.SR.24H (FP) PO SCH (10:06)
[2024-04-19 10:12] LABS: HEMATOCRIT 35.6 % (32.4-45.2); HEMOGLOBIN 11.5 GM/dL (10.7-15.3); MCH 31.3 pg (25.7-33.7); MCHC 32.3 g/dl (32.0-36.0); MEAN CELL VOLUME 96.8 fl (80-96); MEAN PLT VOLUME 9.2 fl (7.5-11.1); PLATELET COUNT 242 10^3/uL (134-434); RBC 3.68 M/mm3 (3.60-5.2); RDW 15.4 % (11.6-15.6); WHITE BLOOD COUNT 4.4 K/mm3 (4.0-10.0)
[2024-04-19 10:17] LABS: CHLORIDE 91 mmol/L (98-107); POTASSIUM 5.5 mmol/L (3.5-5.1); SODIUM 137 mmol/L (136-145)
[2024-04-19 10:20] LABS: CALCIUM 9.3 mg/dL (8.5-10.1)
[2024-04-19 10:21] LABS: ALBUMIN 2.8 g/dl (3.4-5.0); BLOOD UREA NITROGEN 18.8 mg/dL (7-18); GLUCOSE,RANDOM 153 mg/dL (74-106)
[2024-04-19 10:24] LABS: CREATININE 0.5 mg/dL (0.55-1.3); SGOT/AST 43 U/L (15-37); SGPT/ALT 105 U/L (13-61)
[2024-04-19] MEDS: ZINC SULFATE 220 MG CAPSULE (FP) PO SCH (10:25)
[2024-04-19 10:26] LABS: BILIRUBIN,TOTAL 0.6 mg/dL (0.2-1); TOT PROT 5.8 g/dl (6.4-8.2)
[2024-04-19] MEDS: AMINO ACIDS/PROTEIN HYDROLYS 30 ML LIQUID.PKT PO SCH (10:26)
[2024-04-19 10:27] LABS: ALK PHOS 141 U/L (45-117)
[2024-04-19 10:30] LABS: ANION GAP 1 mmol/L (4-13); CO2 > 45 mmol/L (21-32)
[2024-04-19 11:36] LABS: ANISOCYTOSIS 0; HELMET CELLS 0; HOWELL-JOLLY BODIES 0; MACROCYTOSIS 0; OVALOCYTE 0; ROULEAU 0; SICKELED CELLS 0; TARGET CELLS 0; TEAR DROP CELLS 0; TOXIC GRANULATION 0
[2024-04-19] MEDS: ALBUTEROL SO4 2.5/IPRATROPIUM 0.5 INH SOL 3 ML VIAL.NEB. NEB SCH (14:05)
[2024-04-20 15:21] LABS: BASO % 0.4 % (0-2.0); HEMATOCRIT 33.2 % (32.4-45.2); HEMOGLOBIN 10.6 GM/dL (10.7-15.3); LYMPH % 5.6 % (8-40); MCH 31.2 pg (25.7-33.7); MCHC 31.9 g/dl (32.0-36.0); MEAN CELL VOLUME 97.8 fl (80-96); MEAN PLT VOLUME 8.5 fl (7.5-11.1); MONO % 4.6 % (3.8-10.2); NEUT % 89.4 % (42.8-82.8); PLATELET COUNT 271 10^3/uL (134-434); WHITE BLOOD COUNT 4.7 K/mm3 (4.0-10.0)
[2024-04-20 15:43] LABS: POTASSIUM 5.2 mmol/L (3.5-5.1)
[2024-04-20 15:45] LABS: CALCIUM 9.2 mg/dL (8.5-10.1)
[2024-04-20 15:46] LABS: ALBUMIN 2.9 g/dl (3.4-5.0); BLOOD UREA NITROGEN 25.3 mg/dL (7-18)
[2024-04-20 15:49] LABS: CREATININE 0.7 mg/dL (0.55-1.3)
[2024-04-20 15:50] LABS: BILIRUBIN,TOTAL 0.5 mg/dL (0.2-1); TOT PROT 5.8 g/dl (6.4-8.2)
[2024-04-21] MEDS: FUROSEMIDE 20 MG TABLET (FP) PO SCH (10:08)
[2024-04-21] MEDS: ALBUTEROL SO4 2.5/IPRATROPIUM 0.5 INH SOL 3 ML VIAL.NEB. NEB SCH (11:25)
[2024-04-21] MEDS: METOPROLOL TARTRATE 5 MG/5 ML VIAL IVPUSH ONE (15:12)
[2024-04-21] MEDS: methylPREDNISolone NA SUCC 40 MG/1 ML VIAL IVPUSH SCH (21:11)
[2024-04-22 08:16] LABS: BASO % 0.4 % (0-2.0); HEMATOCRIT 34.1 % (32.4-45.2); HEMOGLOBIN 10.7 GM/dL (10.7-15.3); LYMPH % 7.7 % (8-40); MCH 30.8 pg (25.7-33.7); MCHC 31.4 g/dl (32.0-36.0); MEAN CELL VOLUME 98.1 fl (80-96); MEAN PLT VOLUME 8.5 fl (7.5-11.1); MONO % 6.2 % (3.8-10.2); NEUT % 85.7 % (42.8-82.8); PLATELET COUNT 285 10^3/uL (134-434); RBC 3.48 M/mm3 (3.60-5.2); RDW 15.3 % (11.6-15.6); WHITE BLOOD COUNT 6.1 K/mm3 (4.0-10.0)
[2024-04-22 08:28] LABS: POTASSIUM 5.2 mmol/L (3.5-5.1)
[2024-04-22 08:34] LABS: BLOOD UREA NITROGEN 12.6 mg/dL (7-18)
[2024-04-22 08:35] LABS: ALBUMIN 2.9 g/dl (3.4-5.0); CALCIUM 9.5 mg/dL (8.5-10.1); MAGNESIUM 2.2 mg/dL (1.8-2.4)
[2024-04-22 08:38] LABS: BILIRUBIN,TOTAL 0.6 mg/dL (0.2-1); CREATININE 0.6 mg/dL (0.55-1.3)
[2024-04-22 08:48] LABS: TOT PROT 5.5 g/dl (6.4-8.2)
[2024-04-22 11:47] VITALS: BMI 19.2
[2024-04-24 09:42] VITALS: BP 102/62; PULSE 73; RESP 13; TEMP 97.7
[2024-04-24] MEDS: ALPRAZolam 0.25 MG TABLET PO PRN (11:44)
[2024-04-25] MEDS ORDERED: methylPREDNISolone NA SUCC 40 MG/1 ML VIAL IVPUSH SCH (10:00)
== END 2024-04-24 13:38 | DRG 189 ==
LOC: JER 19:16 → JERBED 21:42 → OBSVTOIN 21:42 → J4W 04-09 19:47
PROVIDERS: ADMIT Internal Medicine; ATTEND Internal Medicine
DX: J96.22 Acute and chronic respiratory failure with hypercapnia (principal); I50.43 Acute on chronic combined systolic (congestive) and diastolic (congestive) heart failure; J44.1 Chronic obstructive pulmonary disease with (acute) exacerbation; I24.89 Other forms of acute ischemic heart disease; I45.2 Bifascicular block; I47.10 Supraventricular tachycardia, unspecified; R64 Cachexia; Z68.1 Body mass index [BMI] 19.9 or less, adult; J96.21 Acute and chronic respiratory failure with hypoxia; I11.0 Hypertensive heart disease with heart failure; E78.5 Hyperlipidemia, unspecified; I25.10 Atherosclerotic heart disease of native coronary artery without angina pectoris
CPT/HCPCS: 0241U-QW; 36415; 36600; 71045-TC-FY; 76700-TC; 80048; 80053; 80061; 82803; 82962; 83036; 83605; 83735; 83880; 84100; 84439; 84443; 84484; 85025; 85027; 87635; 93005; 93010; 93306-TC; 94640; 94660; 97116-GP; 97163-GP; 99285-25; J1644

== ENCOUNTER 2024-07-10 12:16 | Inpatient (IN) | payer OTHER ==
[2024-07-10] MEDS ORDERED: ALBUTEROL SO4 2.5/IPRATROPIUM 0.5 INH SOL 3 ML VIAL.NEB. NEB ONE ×3 (12:35→20:04)
[2024-07-10] MEDS ORDERED: methylPREDNISolone NA SUCC 125 MG/2 ML VIAL ONE (12:41)
[2024-07-10] MEDS: methylPREDNISolone NA SUCC 125 MG/2 ML VIAL IVPB ONE (13:03)
[2024-07-10] MEDS: ALBUTEROL SO4 2.5/IPRATROPIUM 0.5 INH SOL 3 ML VIAL.NEB. NEB SCH ×2 (13:03→20:14)
[2024-07-10] MEDS ORDERED: FUROSEMIDE 40 MG/4 ML INJECTABLE VIAL ONE (13:21)
[2024-07-10 13:23] LABS: BASO % 0.9 % (0-2.0); EOS % 0.8 % (0-4.5); HEMATOCRIT 38.9 % (32.4-45.2); HEMOGLOBIN 11.8 GM/dL (10.7-15.3); LYMPH % 26.8 % (8-40); MCH 29.3 pg (25.7-33.7); MCHC 30.3 g/dl (32.0-36.0); MEAN CELL VOLUME 96.5 fl (80-96); MEAN PLT VOLUME 8.5 fl (7.5-11.1); MONO % 7.8 % (3.8-10.2); NEUT % 63.7 % (42.8-82.8); PLATELET COUNT 289 10^3/uL (134-434); RBC 4.03 M/mm3 (3.60-5.2)
[2024-07-10] MEDS: FUROSEMIDE 40 MG/4 ML INJECTABLE VIAL IVPUSH ONE (13:25)
[2024-07-10 13:46] LABS: POTASSIUM 4.1 mmol/L (3.5-5.1)
[2024-07-10 13:48] LABS: CALCIUM 9.3 mg/dL (8.5-10.1)
[2024-07-10 13:49] LABS: ALBUMIN 3.6 g/dl (3.4-5.0); BLOOD UREA NITROGEN 20.6 mg/dL (7-18); MAGNESIUM 2.1 mg/dL (1.8-2.4)
[2024-07-10 13:52] LABS: CREATININE 0.7 mg/dL (0.55-1.3)
[2024-07-10 13:53] LABS: BILIRUBIN,TOTAL 0.6 mg/dL (0.2-1)
[2024-07-10 13:54] LABS: TOT PROT 6.8 g/dl (6.4-8.2)
[2024-07-10] MEDS: ATORVASTATIN CA 80 MG TABLET (FP) PO SCH (21:25)
[2024-07-10] MEDS: ALPRAZolam 0.25 MG TABLET PO SCH (21:25)
[2024-07-11] MEDS: metoPROLOL SUCCINATE 25 MG TAB.SR.24H (FP) PO ONE (00:33)
[2024-07-11 07:34] LABS: BASO % 0.5 % (0-2.0); HEMATOCRIT 37.5 % (32.4-45.2); HEMOGLOBIN 11.4 GM/dL (10.7-15.3); LYMPH % 33.6 % (8-40); MCH 29.4 pg (25.7-33.7); MCHC 30.5 g/dl (32.0-36.0); MEAN CELL VOLUME 96.5 fl (80-96); MEAN PLT VOLUME 8.6 fl (7.5-11.1); NEUT % 55.9 % (42.8-82.8); PLATELET COUNT 319 10^3/uL (134-434); POTASSIUM 4.8 mmol/L (3.5-5.1); RBC 3.88 M/mm3 (3.60-5.2); RDW 15.7 % (11.6-15.6); WHITE BLOOD COUNT 2.5 K/mm3 (4.0-10.0)
[2024-07-11 07:43] LABS: ALBUMIN 3.4 g/dl (3.4-5.0); MAGNESIUM 2.2 mg/dL (1.8-2.4)
[2024-07-11 07:44] LABS: BLOOD UREA NITROGEN 23.3 mg/dL (7-18); CALCIUM 9.6 mg/dL (8.5-10.1)
[2024-07-11 07:46] LABS: CREATININE 0.8 mg/dL (0.55-1.3)
[2024-07-11 07:47] LABS: PHOSPHOROUS 4.5 mg/dL (2.5-4.9)
[2024-07-11 07:48] LABS: TOT PROT 6.4 g/dl (6.4-8.2)
[2024-07-11 07:49] LABS: BILIRUBIN,TOTAL 0.6 mg/dL (0.2-1)
[2024-07-11] MEDS: ASCORBIC ACID 500 MG TABLET (FP) PO SCH (10:31)
[2024-07-11] MEDS: POLYETHYLENE GLYCOL (HEALTHYLAX) 3350 17 GM PACKET PO SCH (10:31)
[2024-07-11] MEDS: ASPIRIN 81 MG CHEWABLE TABLETS PO SCH (10:31)
[2024-07-11] MEDS: MULTIVITAMINS (DAILY MVI) TABLET (FP) PO SCH (10:31)
[2024-07-11] MEDS: FUROSEMIDE 40 MG/4 ML INJECTABLE VIAL IVPUSH SCH (10:31)
[2024-07-11] MEDS: metoPROLOL SUCCINATE 25 MG TAB.SR.24H (FP) PO SCH (10:32)
[2024-07-11] MEDS: predniSONE 10 MG TABLET (UD) PO SCH (10:32)
[2024-07-11] MEDS: ENOXAPARIN NA (PORCINE) 40 MG/0.4 ML DISP.SYRIN SQ SCH (14:36)
[2024-07-11] MEDS ORDERED: ENOXAPARIN NA (PORCINE) 40 MG/0.4 ML DISP.SYRIN SQ SCH (22:00)
[2024-07-12 06:48] LABS: HEMATOCRIT 33.2 % (32.4-45.2); HEMOGLOBIN 10.1 GM/dL (10.7-15.3); MCH 29.3 pg (25.7-33.7); MCHC 30.4 g/dl (32.0-36.0); MEAN CELL VOLUME 96.3 fl (80-96); MEAN PLT VOLUME 8.7 fl (7.5-11.1); PLATELET COUNT 270 10^3/uL (134-434); RBC 3.45 M/mm3 (3.60-5.2); RDW 15.5 % (11.6-15.6); WHITE BLOOD COUNT 4.6 K/mm3 (4.0-10.0)
[2024-07-12 07:04] LABS: POTASSIUM 3.9 mmol/L (3.5-5.1)
[2024-07-12 07:09] LABS: ALBUMIN 2.9 g/dl (3.4-5.0); BLOOD UREA NITROGEN 26.1 mg/dL (7-18); MAGNESIUM 2.1 mg/dL (1.8-2.4)
[2024-07-12 07:12] LABS: CREATININE 0.8 mg/dL (0.55-1.3); PHOSPHOROUS 3.6 mg/dL (2.5-4.9)
[2024-07-12 07:13] LABS: BILIRUBIN,TOTAL 0.5 mg/dL (0.2-1)
[2024-07-12 07:14] LABS: TOT PROT 5.4 g/dl (6.4-8.2)
[2024-07-12] MEDS: FLUTICASONE/SALMETEROL (WIXELA) 100 MCG/50 MCG DISKUS IH SCH (21:11)
[2024-07-13 06:56] LABS: HEMATOCRIT 32.4 % (32.4-45.2); HEMOGLOBIN 10.1 GM/dL (10.7-15.3); MCH 29.7 pg (25.7-33.7); MCHC 31.1 g/dl (32.0-36.0); MEAN CELL VOLUME 95.4 fl (80-96); MEAN PLT VOLUME 8.6 fl (7.5-11.1); PLATELET COUNT 260 10^3/uL (134-434); RDW 15.9 % (11.6-15.6); WHITE BLOOD COUNT 3.5 K/mm3 (4.0-10.0)
[2024-07-13 07:18] LABS: POTASSIUM 3.8 mmol/L (3.5-5.1)
[2024-07-13 07:23] LABS: CALCIUM 8.8 mg/dL (8.5-10.1)
[2024-07-13 07:24] LABS: ALBUMIN 2.8 g/dl (3.4-5.0); BLOOD UREA NITROGEN 22.1 mg/dL (7-18)
[2024-07-13 07:27] LABS: CREATININE 0.6 mg/dL (0.55-1.3)
[2024-07-13 07:28] LABS: BILIRUBIN,TOTAL 0.5 mg/dL (0.2-1); TOT PROT 5.4 g/dl (6.4-8.2)
[2024-07-13] MEDS: metoPROLOL SUCCINATE 25 MG TAB.SR.24H (FP) PO SCH (10:07)
[2024-07-13] MEDS: POTASSIUM CHLORIDE ORAL LIQUID 20 MEQ/15 ML PO ONE (15:39)
[2024-07-14 11:58] LABS: BASO % 0.7 % (0-2.0); EOS % 0.7 % (0-4.5); HEMATOCRIT 39.1 % (32.4-45.2); LYMPH % 17.7 % (8-40); MCH 29.4 pg (25.7-33.7); MCHC 30.6 g/dl (32.0-36.0); MEAN CELL VOLUME 96.2 fl (80-96); MONO % 9.6 % (3.8-10.2); NEUT % 71.3 % (42.8-82.8); PLATELET COUNT 305 10^3/uL (134-434); RBC 4.06 M/mm3 (3.60-5.2); RDW 15.9 % (11.6-15.6); WHITE BLOOD COUNT 6.6 K/mm3 (4.0-10.0)
[2024-07-14 12:17] LABS: BLOOD UREA NITROGEN 14.6 mg/dL (7-18); CALCIUM 9.7 mg/dL (8.5-10.1); MAGNESIUM 2.3 mg/dL (1.8-2.4)
[2024-07-14 12:21] LABS: CREATININE 0.7 mg/dL (0.55-1.3); PHOSPHOROUS 3.6 mg/dL (2.5-4.9)
[2024-07-14 12:47] LABS: ALBUMIN 3.6 g/dl (3.4-5.0)
[2024-07-14] MEDS: FUROSEMIDE 40 MG/4 ML INJECTABLE VIAL IVPUSH SCH (17:22)
[2024-07-15 08:48] LABS: HEMATOCRIT 31.2 % (32.4-45.2); HEMOGLOBIN 9.7 GM/dL (10.7-15.3); MCH 29.6 pg (25.7-33.7); MEAN CELL VOLUME 95.5 fl (80-96); MEAN PLT VOLUME 9.3 fl (7.5-11.1); PLATELET COUNT 243 10^3/uL (134-434); RBC 3.27 M/mm3 (3.60-5.2); RDW 15.6 % (11.6-15.6); WHITE BLOOD COUNT 6.6 K/mm3 (4.0-10.0)
[2024-07-15 09:10] LABS: POTASSIUM 3.9 mmol/L (3.5-5.1)
[2024-07-15 09:11] LABS: BLOOD UREA NITROGEN 14.3 mg/dL (7-18); CALCIUM 9.2 mg/dL (8.5-10.1)
[2024-07-15 09:14] LABS: CREATININE 0.6 mg/dL (0.55-1.3)
[2024-07-15 09:15] LABS: BILIRUBIN,TOTAL 0.6 mg/dL (0.2-1); TOT PROT 5.5 g/dl (6.4-8.2)
[2024-07-15 09:23] LABS: ALBUMIN 2.8 g/dl (3.4-5.0)
[2024-07-15] MEDS ORDERED: ACETAMINOPHEN 325 MG TABLET (FP) PO PRN (18:54)
[2024-07-16 08:18] LABS: HEMATOCRIT 32.9 % (32.4-45.2); HEMOGLOBIN 10.1 GM/dL (10.7-15.3); MCH 29.4 pg (25.7-33.7); MCHC 30.6 g/dl (32.0-36.0); MEAN CELL VOLUME 96.1 fl (80-96); PLATELET COUNT 257 10^3/uL (134-434); RBC 3.42 M/mm3 (3.60-5.2); RDW 15.9 % (11.6-15.6); WHITE BLOOD COUNT 5.9 K/mm3 (4.0-10.0)
[2024-07-16 08:26] LABS: CHLORIDE 94 mmol/L (98-107); POTASSIUM 3.8 mmol/L (3.5-5.1); SODIUM 137 mmol/L (136-145)
[2024-07-16 08:32] LABS: CALCIUM 8.9 mg/dL (8.5-10.1)
[2024-07-16 08:33] LABS: ALBUMIN 2.9 g/dl (3.4-5.0); GLUCOSE,RANDOM 100 mg/dL (74-106); MAGNESIUM 2.2 mg/dL (1.8-2.4)
[2024-07-16 08:36] LABS: CREATININE 0.6 mg/dL (0.55-1.3); PHOSPHOROUS 4.1 mg/dL (2.5-4.9); SGOT/AST 23 U/L (15-37); SGPT/ALT 39 U/L (13-61)
[2024-07-16 08:37] LABS: BILIRUBIN,TOTAL 0.6 mg/dL (0.2-1)
[2024-07-16 08:38] LABS: ALK PHOS 134 U/L (45-117); ANION GAP -2 mmol/L (4-13); CO2 > 45 mmol/L (21-32)
[2024-07-16] MEDS ORDERED: ALBUTEROL SO4 0.083% IH SOL 2.5 MG/3 ML VIAL.NEB. NEB PRN (16:20)
[2024-07-16 16:34] LABS: ARTERIAL BLOOD GAS BASE EXCESS 17.1 mmol/L (-2-2); ARTERIAL BLOOD GAS PO2 106.2 mmHg (80-100); ARTERIAL BLOOD GAS pH 7.464 (7.350-7.450)
[2024-07-16 16:37] LABS: ALLENS TEST POSITIVE
[2024-07-16] MEDS: FLUTICASONE/UMECLIDIN/VILANTER(100-62.5-25 TRELEGY ELLIPTA) INAHLER IH SCH (17:20)
[2024-07-16] MEDS: predniSONE 20 MG TABLET (UD) PO SCH (17:20)
[2024-07-17 07:30] LABS: HEMATOCRIT 34.2 % (32.4-45.2); HEMOGLOBIN 10.4 GM/dL (10.7-15.3); MCHC 30.5 g/dl (32.0-36.0); PLATELET COUNT 273 10^3/uL (134-434); RDW 15.8 % (11.6-15.6); WHITE BLOOD COUNT 4.6 K/mm3 (4.0-10.0)
[2024-07-17 07:42] LABS: POTASSIUM 3.9 mmol/L (3.5-5.1)
[2024-07-17 07:44] LABS: CALCIUM 9.1 mg/dL (8.5-10.1)
[2024-07-17 07:45] LABS: ALBUMIN 2.8 g/dl (3.4-5.0); BLOOD UREA NITROGEN 16.8 mg/dL (7-18); MAGNESIUM 2.2 mg/dL (1.8-2.4)
[2024-07-17 07:48] LABS: CREATININE 0.6 mg/dL (0.55-1.3); PHOSPHOROUS 3.9 mg/dL (2.5-4.9)
[2024-07-17 07:49] LABS: BILIRUBIN,TOTAL 0.6 mg/dL (0.2-1); TOT PROT 6.2 g/dl (6.4-8.2)
[2024-07-17] MEDS: PIPERACILLIN/TAZOB 3.375 GM 50 ML IVPB SCH (14:41)
[2024-07-17] MEDS: ALBUTEROL SO4 0.083% IH SOL 2.5 MG/3 ML VIAL.NEB. NEB SCH (15:43)
[2024-07-17] MEDS: methylPREDNISolone NA SUCC 40 MG/1 ML VIAL IVPUSH SCH (18:03)
[2024-07-18 08:12] LABS: CHLORIDE 90 mmol/L (98-107); SODIUM 141 mmol/L (136-145)
[2024-07-18 08:16] LABS: ALBUMIN 3.1 g/dl (3.4-5.0); CALCIUM 9.4 mg/dL (8.5-10.1)
[2024-07-18 08:17] LABS: BLOOD UREA NITROGEN 22.1 mg/dL (7-18); GLUCOSE,RANDOM 169 mg/dL (74-106); MAGNESIUM 2.4 mg/dL (1.8-2.4)
[2024-07-18 08:20] LABS: ANION GAP 6 mmol/L (4-13); BILIRUBIN,TOTAL 0.5 mg/dL (0.2-1); CO2 > 45 mmol/L (21-32); CREATININE 0.8 mg/dL (0.55-1.3); PHOSPHOROUS 3.9 mg/dL (2.5-4.9); SGOT/AST 29 U/L (15-37); SGPT/ALT 39 U/L (13-61); TOT PROT 6.7 g/dl (6.4-8.2)
[2024-07-18 08:23] LABS: ALK PHOS 136 U/L (45-117)
[2024-07-18] MEDS: SACUBITRIL/VALSARTAN 24 MG-26 MG TABLET PO SCH ×2 (21:20→21:24)
[2024-07-19 07:34] LABS: HEMATOCRIT 35.3 % (32.4-45.2); MCH 29.8 pg (25.7-33.7); MCHC 31.2 g/dl (32.0-36.0); MEAN CELL VOLUME 95.5 fl (80-96); MEAN PLT VOLUME 8.9 fl (7.5-11.1); PLATELET COUNT 312 10^3/uL (134-434); RDW 15.3 % (11.6-15.6); WHITE BLOOD COUNT 5.2 K/mm3 (4.0-10.0)
[2024-07-19 07:46] LABS: CHLORIDE 88 mmol/L (98-107); POTASSIUM 3.9 mmol/L (3.5-5.1); SODIUM 138 mmol/L (136-145)
[2024-07-19 07:50] LABS: ALBUMIN 2.8 g/dl (3.4-5.0); BLOOD UREA NITROGEN 27.4 mg/dL (7-18); CALCIUM 9.2 mg/dL (8.5-10.1); GLUCOSE,RANDOM 172 mg/dL (74-106); MAGNESIUM 2.3 mg/dL (1.8-2.4)
[2024-07-19 07:51] LABS: ANION GAP 5 mmol/L (4-13); CO2 > 45 mmol/L (21-32)
[2024-07-19 07:53] LABS: CREATININE 0.7 mg/dL (0.55-1.3)
[2024-07-19 07:54] LABS: BILIRUBIN,TOTAL 0.4 mg/dL (0.2-1); PHOSPHOROUS 3.5 mg/dL (2.5-4.9); SGOT/AST 27 U/L (15-37); SGPT/ALT 38 U/L (13-61)
[2024-07-19 07:55] LABS: TOT PROT 6.4 g/dl (6.4-8.2)
[2024-07-19 07:56] LABS: ALK PHOS 129 U/L (45-117)
[2024-07-19] MEDS: FUROSEMIDE 40 MG/4 ML INJECTABLE VIAL IVPUSH SCH (09:47)
[2024-07-19] MEDS: BENZOCAINE/MENTH/CETYLPYRD CL 1 EACH LOZENGE MM PRN (15:56)
[2024-07-19] MEDS: guaiFENesin 200 MG/10 ML 10 ML UNIT-DOSE CUPS PO PRN (21:30)
[2024-07-20] MEDS: EMPAGLIFLOZIN (JARDIANCE) 10 MG TABLET PO SCH (12:11)
[2024-07-21] MEDS: EMPAGLIFLOZIN (JARDIANCE) 10 MG TABLET PO SCH (06:33)
[2024-07-21 07:50] LABS: CHLORIDE 89 mmol/L (98-107); POTASSIUM 3.8 mmol/L (3.5-5.1); SODIUM 139 mmol/L (136-145)
[2024-07-21 07:53] LABS: CALCIUM 9.2 mg/dL (8.5-10.1)
[2024-07-21 07:54] LABS: ALBUMIN 2.7 g/dl (3.4-5.0); GLUCOSE,RANDOM 149 mg/dL (74-106)
[2024-07-21 07:57] LABS: SGOT/AST 21 U/L (15-37); SGPT/ALT 32 U/L (13-61)
[2024-07-21 07:58] LABS: BILIRUBIN,TOTAL 0.8 mg/dL (0.2-1); HEMATOCRIT 37.8 % (32.4-45.2); HEMOGLOBIN 11.9 GM/dL (10.7-15.3); MCH 29.5 pg (25.7-33.7); MCHC 31.4 g/dl (32.0-36.0); MEAN CELL VOLUME 93.8 fl (80-96); PLATELET COUNT 288 10^3/uL (134-434); RBC 4.03 M/mm3 (3.60-5.2); RDW 15.8 % (11.6-15.6); WHITE BLOOD COUNT 4.6 K/mm3 (4.0-10.0)
[2024-07-21 07:59] LABS: CREATININE 0.9 mg/dL (0.55-1.3); TOT PROT 5.9 g/dl (6.4-8.2)
[2024-07-21 08:00] LABS: ALK PHOS 118 U/L (45-117); ANION GAP 5 mmol/L (4-13); CO2 > 45 mmol/L (21-32)
[2024-07-21] MEDS: OSELTAMIVIR PHOSPHATE 75 MG CAPSULE PO ONE (16:07)
[2024-07-21] MEDS: OSELTAMIVIR PHOSPHATE 30 MG CAPSULE PO SCH (21:38)
[2024-07-22 07:21] LABS: BASO % 0.1 % (0-2.0); HEMATOCRIT 38.4 % (32.4-45.2); HEMOGLOBIN 11.9 GM/dL (10.7-15.3); LYMPH % 7.3 % (8-40); MCH 29.2 pg (25.7-33.7); MCHC 30.9 g/dl (32.0-36.0); MEAN CELL VOLUME 94.7 fl (80-96); MEAN PLT VOLUME 8.9 fl (7.5-11.1); MONO % 6.8 % (3.8-10.2); NEUT % 85.8 % (42.8-82.8); PLATELET COUNT 297 10^3/uL (134-434); RBC 4.06 M/mm3 (3.60-5.2); WHITE BLOOD COUNT 4.7 K/mm3 (4.0-10.0)
[2024-07-22 07:38] LABS: CHLORIDE 91 mmol/L (98-107); POTASSIUM 3.7 mmol/L (3.5-5.1); SODIUM 142 mmol/L (136-145)
[2024-07-22 07:40] LABS: ALBUMIN 2.6 g/dl (3.4-5.0); GLUCOSE,RANDOM 158 mg/dL (74-106)
[2024-07-22 07:41] LABS: CALCIUM 9.3 mg/dL (8.5-10.1)
[2024-07-22 07:42] LABS: BLOOD UREA NITROGEN 32.2 mg/dL (7-18); MAGNESIUM 2.8 mg/dL (1.8-2.4)
[2024-07-22 07:43] LABS: CREATININE 0.7 mg/dL (0.55-1.3); SGOT/AST 21 U/L (15-37); SGPT/ALT 32 U/L (13-61)
[2024-07-22 07:44] LABS: PHOSPHOROUS 4.4 mg/dL (2.5-4.9)
[2024-07-22 07:45] LABS: BILIRUBIN,TOTAL 0.4 mg/dL (0.2-1); TOT PROT 5.6 g/dl (6.4-8.2)
[2024-07-22 07:46] LABS: ALK PHOS 108 U/L (45-117)
[2024-07-22 07:50] LABS: ANION GAP 6 mmol/L (4-13); CO2 > 45 mmol/L (21-32)
[2024-07-22] MEDS: ALBUTEROL SO4 0.083% IH SOL 2.5 MG/3 ML VIAL.NEB. NEB SCH (20:54)
[2024-07-22] MEDS: methylPREDNISolone NA SUCC 40 MG/1 ML VIAL IVPUSH SCH (22:38)
[2024-07-23] MEDS: methylPREDNISolone NA SUCC 40 MG/1 ML VIAL IVPUSH SCH (08:30)
[2024-07-23] MEDS: predniSONE 20 MG TABLET (UD) PO SCH (11:12)
[2024-07-23] MEDS: APIXABAN 5 MG TABLET PO SCH (21:53)
[2024-07-23] MEDS: DRONEDARONE HCL 400 MG TAB (FP) PO SCH (21:53)
[2024-07-24] MEDS: ALBUTEROL SO4 2.5/IPRATROPIUM 0.5 INH SOL 3 ML VIAL.NEB. NEB ONE (03:53)
[2024-07-24] MEDS ORDERED: ALPRAZolam 1 MG TABLET PO PRN (05:31)
[2024-07-24] MEDS: ALPRAZolam 0.25 MG TABLET PO SCH (05:59)
[2024-07-24 07:43] LABS: BASO % 0.4 % (0-2.0); EOS % 0.2 % (0-4.5); HEMOGLOBIN 11.3 GM/dL (10.7-15.3); LYMPH % 16.4 % (8-40); MCH 29.1 pg (25.7-33.7); MCHC 31.3 g/dl (32.0-36.0); MEAN CELL VOLUME 93.1 fl (80-96); MEAN PLT VOLUME 8.7 fl (7.5-11.1); MONO % 12.3 % (3.8-10.2); NEUT % 70.7 % (42.8-82.8); PLATELET COUNT 312 10^3/uL (134-434); RBC 3.87 M/mm3 (3.60-5.2); WHITE BLOOD COUNT 4.6 K/mm3 (4.0-10.0)
[2024-07-24 07:52] LABS: CHLORIDE 89 mmol/L (98-107); POTASSIUM 3.3 mmol/L (3.5-5.1); SODIUM 140 mmol/L (136-145)
[2024-07-24 07:56] LABS: ALBUMIN 2.6 g/dl (3.4-5.0); CALCIUM 9.1 mg/dL (8.5-10.1)
[2024-07-24 07:57] LABS: BLOOD UREA NITROGEN 26.3 mg/dL (7-18); GLUCOSE,RANDOM 90 mg/dL (74-106); MAGNESIUM 2.5 mg/dL (1.8-2.4)
[2024-07-24 07:59] LABS: SGPT/ALT 34 U/L (13-61)
[2024-07-24 08:00] LABS: CREATININE 0.5 mg/dL (0.55-1.3); SGOT/AST 27 U/L (15-37)
[2024-07-24 08:01] LABS: BILIRUBIN,TOTAL 0.5 mg/dL (0.2-1); TOT PROT 5.6 g/dl (6.4-8.2)
[2024-07-24 08:02] LABS: ALK PHOS 99 U/L (45-117)
[2024-07-24 08:10] LABS: ANION GAP 6 mmol/L (4-13); CO2 > 45 mmol/L (21-32)
[2024-07-24] MEDS ORDERED: FUROSEMIDE 20 MG TABLET (FP) PO SCH (10:00)
[2024-07-24] MEDS: predniSONE 10 MG TABLET (UD) PO SCH (10:08)
[2024-07-24] MEDS: POTASSIUM CHLORIDE TABS 20 MEQ TABLET.ER (FP) PO ONE (13:45)
[2024-07-24] MEDS: ALPRAZolam 0.25 MG TABLET PO ONE (16:34)
[2024-07-24 17:19] VITALS: BMI 19.4
[2024-07-24 20:43] LABS: POTASSIUM 4.1 mmol/L (3.5-5.1)
[2024-07-24 20:45] LABS: ALBUMIN 2.8 g/dl (3.4-5.0); CALCIUM 8.7 mg/dL (8.5-10.1)
[2024-07-24 20:46] LABS: BLOOD UREA NITROGEN 33.1 mg/dL (7-18)
[2024-07-24 20:49] LABS: CREATININE 0.9 mg/dL (0.55-1.3)
[2024-07-24 20:50] LABS: BILIRUBIN,TOTAL 0.3 mg/dL (0.2-1); TOT PROT 5.8 g/dl (6.4-8.2)
[2024-07-25 08:44] LABS: BASO % 0.6 % (0-2.0); EOS % 0.2 % (0-4.5); HEMATOCRIT 36.5 % (32.4-45.2); HEMOGLOBIN 11.2 GM/dL (10.7-15.3); LYMPH % 17.4 % (8-40); MCHC 30.6 g/dl (32.0-36.0); MEAN CELL VOLUME 94.9 fl (80-96); MEAN PLT VOLUME 8.6 fl (7.5-11.1); MONO % 11.5 % (3.8-10.2); NEUT % 70.3 % (42.8-82.8); PLATELET COUNT 316 10^3/uL (134-434); RBC 3.85 M/mm3 (3.60-5.2); RDW 16.3 % (11.6-15.6); WHITE BLOOD COUNT 5.4 K/mm3 (4.0-10.0)
[2024-07-25 09:08] LABS: MAGNESIUM 2.7 mg/dL (1.8-2.4); PHOSPHOROUS 3.8 mg/dL (2.5-4.9)
[2024-07-25] MEDS: FUROSEMIDE 20 MG TABLET (FP) PO SCH (10:34)
[2024-07-25 18:54] LABS: HEMATOCRIT 34.9 % (32.4-45.2); HEMOGLOBIN 10.9 GM/dL (10.7-15.3); MCH 29.1 pg (25.7-33.7); MCHC 31.4 g/dl (32.0-36.0); MEAN CELL VOLUME 92.8 fl (80-96); MEAN PLT VOLUME 8.7 fl (7.5-11.1); PLATELET COUNT 332 10^3/uL (134-434); RBC 3.76 M/mm3 (3.60-5.2); RDW 16.4 % (11.6-15.6); WHITE BLOOD COUNT 8.1 K/mm3 (4.0-10.0)
[2024-07-25 19:11] LABS: POTASSIUM 3.7 mmol/L (3.5-5.1)
[2024-07-25 19:15] LABS: CALCIUM 8.9 mg/dL (8.5-10.1)
[2024-07-25 19:16] LABS: ALBUMIN 2.8 g/dl (3.4-5.0); BLOOD UREA NITROGEN 28.5 mg/dL (7-18)
[2024-07-25 19:19] LABS: CREATININE 0.8 mg/dL (0.55-1.3)
[2024-07-25 19:21] LABS: BILIRUBIN,TOTAL 0.6 mg/dL (0.2-1); TOT PROT 5.9 g/dl (6.4-8.2)
[2024-07-25] MEDS: ALPRAZolam 0.25 MG TABLET PO ONE (20:43)
[2024-07-26 08:03] LABS: MAGNESIUM 2.5 mg/dL (1.8-2.4)
[2024-07-26] MEDS: predniSONE 20 MG TABLET (UD) PO SCH (09:21)
[2024-07-26 18:25] LABS: BASO % 0.6 % (0-2.0); HEMATOCRIT 35.8 % (32.4-45.2); HEMOGLOBIN 10.9 GM/dL (10.7-15.3); LYMPH % 12.1 % (8-40); MCH 28.8 pg (25.7-33.7); MCHC 30.6 g/dl (32.0-36.0); MEAN CELL VOLUME 94.2 fl (80-96); MEAN PLT VOLUME 8.6 fl (7.5-11.1); MONO % 3.3 % (3.8-10.2); PLATELET COUNT 333 10^3/uL (134-434); RDW 16.1 % (11.6-15.6)
[2024-07-26 18:55] LABS: ALBUMIN 2.9 g/dl (3.4-5.0); CALCIUM 9.2 mg/dL (8.5-10.1)
[2024-07-26 18:56] LABS: BLOOD UREA NITROGEN 27.2 mg/dL (7-18); MAGNESIUM 2.5 mg/dL (1.8-2.4)
[2024-07-26 18:59] LABS: CREATININE 0.8 mg/dL (0.55-1.3)
[2024-07-26 19:00] LABS: BILIRUBIN,TOTAL 0.4 mg/dL (0.2-1)
[2024-07-27 08:44] LABS: POTASSIUM 5.7 mmol/L (3.5-5.1)
[2024-07-27 08:46] LABS: ALBUMIN 2.6 g/dl (3.4-5.0); BLOOD UREA NITROGEN 24.6 mg/dL (7-18); CALCIUM 8.7 mg/dL (8.5-10.1); MAGNESIUM 2.4 mg/dL (1.8-2.4)
[2024-07-27 08:49] LABS: CREATININE 0.6 mg/dL (0.55-1.3)
[2024-07-27 08:51] LABS: BILIRUBIN,TOTAL 0.6 mg/dL (0.2-1)
[2024-07-27] MEDS ORDERED: predniSONE 10 MG TABLET (UD) PO ONE (10:00)
[2024-07-27 10:12] VITALS: RESP 20
[2024-07-27] MEDS: SODIUM POLYSTYRENE SULFONATE 15 GM/60 ML BOTTLE PO ONE (11:47)
[2024-07-27 15:37] VITALS: BP 90/52; PULSE 80; TEMP 98.6
[2024-07-27 16:15] LABS: BASO % 0.3 % (0-2.0); EOS % 0.1 % (0-4.5); HEMATOCRIT 36.8 % (32.4-45.2); HEMOGLOBIN 11.5 GM/dL (10.7-15.3); MCH 29.3 pg (25.7-33.7); MCHC 31.2 g/dl (32.0-36.0); MEAN CELL VOLUME 93.9 fl (80-96); MEAN PLT VOLUME 8.7 fl (7.5-11.1); MONO % 2.1 % (3.8-10.2); NEUT % 90.5 % (42.8-82.8); PLATELET COUNT 348 10^3/uL (134-434); RBC 3.92 M/mm3 (3.60-5.2); WHITE BLOOD COUNT 9.1 K/mm3 (4.0-10.0)
[2024-07-27 17:43] LABS: POTASSIUM 4.2 mmol/L (3.5-5.1)
[2024-07-27 17:46] LABS: BLOOD UREA NITROGEN 26.7 mg/dL (7-18)
[2024-07-27 17:49] LABS: CREATININE 0.8 mg/dL (0.55-1.3)
[2024-07-27 17:50] LABS: BILIRUBIN,TOTAL 0.5 mg/dL (0.2-1); TOT PROT 6.4 g/dl (6.4-8.2)
[2024-07-29] MEDS ORDERED: predniSONE 10 MG TABLET (UD) PO SCH (10:00)
[2024-08-01] MEDS ORDERED: predniSONE 5 MG TABLET (UD) PO SCH (10:00)
== END 2024-07-27 17:10 | DRG 291 ==
LOC: JER 12:16 → JERBED 16:29 → J4W 20:48
PROVIDERS: ADMIT Internal Medicine; ATTEND Student in an Organized Health Care Education/Training Program
DX: I11.0 Hypertensive heart disease with heart failure (principal); I50.23 Acute on chronic systolic (congestive) heart failure; J96.21 Acute and chronic respiratory failure with hypoxia; J11.00 Influenza due to unidentified influenza virus with unspecified type of pneumonia; I45.2 Bifascicular block; J98.11 Atelectasis; I24.89 Other forms of acute ischemic heart disease; J44.1 Chronic obstructive pulmonary disease with (acute) exacerbation; I25.10 Atherosclerotic heart disease of native coronary artery without angina pectoris; I27.20 Pulmonary hypertension, unspecified; Z99.81 Dependence on supplemental oxygen; R94.5 Abnormal results of liver function studies; R91.1 Solitary pulmonary nodule; I48.91 Unspecified atrial fibrillation
CPT/HCPCS: 0241U-QW; 36415; 36600; 71045-TC-FY; 71250-TC; 80053; 80061; 82803; 82962; 83735; 83880; 84100; 84484; 85025; 85027; 93005; 93010; 93306-TC; 93970-TC; 94010; 94640; 97116-GP; 99291

== ENCOUNTER 2024-08-04 15:08 | Inpatient (IN) | payer OTHER ==
[2024-08-04] MEDS: SODIUM CHLORIDE 0.9% 500 ML INFUS.BAG IV ONE ×2 (15:54→17:49)
[2024-08-04 16:40] LABS: VENOUS O2 SATURATION 47.6 % (70-80)
[2024-08-04 16:43] LABS: VENOUS PCO2 78.5 mmHg (38-52); VENOUS PH 7.155 (7.310-7.410)
[2024-08-04 16:50] LABS: PROTHROMBIN TIME (PATIENT) 74.7 SEC (9.7-13.0)
[2024-08-04 16:53] LABS: ACTIVATED PTT 35.4 SECONDS (25.2-36.5)
[2024-08-04 17:02] LABS: HEMATOCRIT 34.5 % (32.4-45.2); HEMOGLOBIN 10.4 GM/dL (10.7-15.3); MCH 28.6 pg (25.7-33.7); MCHC 30.2 g/dl (32.0-36.0); MEAN CELL VOLUME 94.8 fl (80-96); PLATELET COUNT 274 10^3/uL (134-434); RBC 3.64 M/mm3 (3.60-5.2); RDW 17.7 % (11.6-15.6)
[2024-08-04] MEDS: methylPREDNISolone NA SUCC 125 MG/2 ML VIAL IVPUSH ONE (17:10)
[2024-08-04 17:21] LABS: INR 6.79 (0.83-1.09)
[2024-08-04 17:32] LABS: POTASSIUM 5.1 mmol/L (3.5-5.1)
[2024-08-04 17:36] LABS: ALBUMIN 2.7 g/dl (3.4-5.0); MAGNESIUM 2.7 mg/dL (1.8-2.4)
[2024-08-04 17:39] LABS: CREATININE 2.5 mg/dL (0.55-1.3); LACTIC ACID 4.9 mmol/L (0.4-2.0)
[2024-08-04 17:40] LABS: TOT PROT 5.3 g/dl (6.4-8.2)
[2024-08-04] MEDS: PIPERACILLIN/TAZOB 3.375 GM 3.375 GM in DEXTROSE 5%-WATER - 50 ML IVPB ONE (17:40)
[2024-08-04] MEDS ORDERED: methylPREDNISolone NA SUCC 125 MG/2 ML VIAL ONE (17:51)
[2024-08-04] MEDS ORDERED: ALBUTEROL SO4 2.5/IPRATROPIUM 0.5 INH SOL 3 ML VIAL.NEB. NEB ONE (17:51)
[2024-08-04] MEDS ORDERED: PIPERACILLIN/TAZOB 3.375 GM 3.375 GM/50 ML BAG IVPB ONE (17:51)
[2024-08-04] MEDS ORDERED: VANCOMYCIN/WATER 1250 MG 1,250 MG/250 ML BAG IVPB ONE (17:52)
[2024-08-04 17:57] LABS: BLOOD UREA NITROGEN 69.6 mg/dL (7-18); CALCIUM 7.6 mg/dL (8.5-10.1)
[2024-08-04] MEDS: VANCOMYCIN/WATER 1250 MG 1,250 MG/250 ML BAG IVPB ONE (18:00)
[2024-08-04] MEDS: LACTATED RINGERS SOLUTION 1000 ML INFUS.BAG IV ONE (18:55)
[2024-08-04 18:56] LABS: ANISOCYTOSIS 1+; MACROCYTOSIS 1+; OVALOCYTE 1+
[2024-08-04] MEDS: ALBUTEROL SO4 2.5/IPRATROPIUM 0.5 INH SOL 3 ML VIAL.NEB. NEB SCH (19:10)
[2024-08-04 19:35] LABS: CHLORIDE 98 mmol/L (98-107); SODIUM 128 mmol/L (136-145)
[2024-08-04 19:37] LABS: ALBUMIN 2.5 g/dl (3.4-5.0); CALCIUM 7.1 mg/dL (8.5-10.1); CO2 28 mmol/L (21-32); GLUCOSE,RANDOM 131 mg/dL (74-106)
[2024-08-04 19:41] LABS: CREATININE 2.4 mg/dL (0.55-1.3)
[2024-08-04 19:43] LABS: ALK PHOS 252 U/L (45-117); BILIRUBIN,TOTAL 3.4 mg/dL (0.2-1); TOT PROT 6.7 g/dl (6.4-8.2)
[2024-08-04 19:48] LABS: ANION GAP 2 mmol/L (4-13); LACTIC ACID 3.7 mmol/L (0.4-2.0); POTASSIUM > 10.0 mmol/L (3.5-5.1)
[2024-08-04 19:56] LABS: SGOT/AST 1828 U/L (15-37); SGPT/ALT 1637 U/L (13-61)
[2024-08-04 20:50] LABS: POTASSIUM 4.6 mmol/L (3.5-5.1)
[2024-08-04 20:52] LABS: CALCIUM 7.6 mg/dL (8.5-10.1)
[2024-08-04 20:53] LABS: ALBUMIN 2.8 g/dl (3.4-5.0); BLOOD UREA NITROGEN 64.4 mg/dL (7-18)
[2024-08-04] MEDS ORDERED: NOREPINEPHRINE BITARTRATE 4 MG/4 ML ML IV ONE (20:54)
[2024-08-04 20:56] LABS: CREATININE 2.2 mg/dL (0.55-1.3)
[2024-08-04 20:58] LABS: BILIRUBIN,TOTAL 3.3 mg/dL (0.2-1); TOT PROT 5.3 g/dl (6.4-8.2)
[2024-08-04] MEDS: NOREPINEPHRINE BITARTRATE 4,000 MCG in DEXTROSE 5%-WATER - 496 ML IV SCH (21:00)
[2024-08-04 22:03] LABS: ARTERIAL BLD GAS O2 SATURATION 99.4 % (95-98); ARTERIAL BLOOD GAS BASE EXCESS -4.5 mmol/L (-2-2); ARTERIAL BLOOD GAS PO2 304.3 mmHg (80-100)
[2024-08-04 22:35] LABS: ARTERIAL BLOOD GAS pH 7.056 (7.350-7.450)
[2024-08-04] MEDS: HEPARIN NA (PORCINE) 5,000 UNITS/ML 1ML VIAL SQ SCH (23:22)
[2024-08-04 23:32] LABS: LACTIC ACID 9.6 mmol/L (0.4-2.0)
[2024-08-05 00:49] LABS: HEMATOCRIT 33.7 % (32.4-45.2); MCH 28.6 pg (25.7-33.7); MCHC 29.7 g/dl (32.0-36.0); MEAN CELL VOLUME 96.4 fl (80-96); MEAN PLT VOLUME 9.1 fl (7.5-11.1); PLATELET COUNT 263 10^3/uL (134-434); RBC 3.49 M/mm3 (3.60-5.2); RDW 18.5 % (11.6-15.6); WHITE BLOOD COUNT 16.9 K/mm3 (4.0-10.0)
[2024-08-05 01:04] LABS: ARTERIAL BLD GAS O2 SATURATION 98.5 % (95-98); ARTERIAL BLOOD GAS BASE EXCESS -5.3 mmol/L (-2-2); ARTERIAL BLOOD GAS PO2 165.1 mmHg (80-100)
[2024-08-05 01:10] LABS: VENT MODE S/T; VENT RATE 14
[2024-08-05 01:13] LABS: ARTERIAL BLOOD GAS pH 7.131 (7.350-7.450)
[2024-08-05 01:45] LABS: POTASSIUM 4.6 mmol/L (3.5-5.1)
[2024-08-05 01:47] LABS: ALBUMIN 2.9 g/dl (3.4-5.0); CALCIUM 7.4 mg/dL (8.5-10.1)
[2024-08-05 01:48] LABS: BLOOD UREA NITROGEN 66.8 mg/dL (7-18); MAGNESIUM 2.4 mg/dL (1.8-2.4)
[2024-08-05 01:51] LABS: CREATININE 2.5 mg/dL (0.55-1.3); PHOSPHOROUS 8.2 mg/dL (2.5-4.9)
[2024-08-05 01:52] LABS: BILIRUBIN,TOTAL 3.3 mg/dL (0.2-1); TOT PROT 5.5 g/dl (6.4-8.2)
[2024-08-05 01:54] VITALS: BMI 23.2
[2024-08-05 01:56] LABS: N-TERMINAL BNP 6462.3 pg/ml (5-450)
[2024-08-05 01:57] LABS: LACTIC ACID 2.6 mmol/L (0.4-2.0)
[2024-08-05 02:33] LABS: PROTHROMBIN TIME (PATIENT) 63.9 SEC (9.7-13.0)
[2024-08-05 02:36] LABS: ACTIVATED PTT 36.2 SECONDS (25.2-36.5)
[2024-08-05] MEDS: PIPERACILLIN/TAZOB 2.25 GM 2.25 GM/50 ML BAG IVPB SCH (03:43)
[2024-08-05 06:37] LABS: INR 5.86 (0.83-1.09)
[2024-08-05 06:41] LABS: ARTERIAL BLOOD GAS BASE EXCESS -0.8 mmol/L (-2-2); ARTERIAL BLOOD GAS PO2 79.7 mmHg (80-100); ARTERIAL BLOOD GAS pH 7.276 (7.350-7.450)
[2024-08-05 06:42] LABS: ALLENS TEST POSITIVE
[2024-08-05 06:43] LABS: VENT MODE ST; VENT RATE 20
[2024-08-05 06:48] LABS: MCH 28.9 pg (25.7-33.7); MCHC 30.2 g/dl (32.0-36.0); MEAN CELL VOLUME 95.7 fl (80-96); MEAN PLT VOLUME 9.3 fl (7.5-11.1); PLATELET COUNT 229 10^3/uL (134-434); RBC 3.13 M/mm3 (3.60-5.2); RDW 17.9 % (11.6-15.6); WHITE BLOOD COUNT 16.1 K/mm3 (4.0-10.0)
[2024-08-05 06:54] LABS: PROTHROMBIN TIME (PATIENT) 48.9 SEC (9.7-13.0)
[2024-08-05 07:27] LABS: INR 4.45 (0.83-1.09)
[2024-08-05] MEDS: INSULIN ASPART SLIDING SCALE (NOVOLOG) 1 VIAL SQ SCH (07:57)
[2024-08-05] MEDS: LORazepam 2 MG/ML SDV VIAL IVPUSH ONE (09:17)
[2024-08-05] MEDS: methylPREDNISolone NA SUCC 40 MG/1 ML VIAL IVPUSH SCH (09:36)
[2024-08-05] MEDS: MUPIROCIN 2% TOPICAL OINTMENT FOR DECOLONIZATION NS SCH (09:37)
[2024-08-05 10:00] LABS: POTASSIUM 4.5 mmol/L (3.5-5.1)
[2024-08-05] MEDS: DEXMEDETOMIDINE PREMIX 400 MCG/100 ML BAG IVPB SCH (10:00)
[2024-08-05 10:02] LABS: BLOOD UREA NITROGEN 73.3 mg/dL (7-18); CALCIUM 7.2 mg/dL (8.5-10.1)
[2024-08-05 10:03] LABS: ALBUMIN 2.9 g/dl (3.4-5.0); MAGNESIUM 2.4 mg/dL (1.8-2.4)
[2024-08-05 10:06] LABS: BILIRUBIN,DIRECT 2.2 mg/dL (0.0-0.2); CREATININE 2.5 mg/dL (0.55-1.3)
[2024-08-05 10:07] LABS: BILIRUBIN,TOTAL 2.9 mg/dL (0.2-1); TOT PROT 5.5 g/dl (6.4-8.2)
[2024-08-05 10:21] LABS: LACTIC ACID 2.6 mmol/L (0.4-2.0)
[2024-08-05] MEDS: SODIUM CHLORIDE 1,000 ML IV SCH (10:24)
[2024-08-05] MEDS: VASopressin 40 UNITS/100 ML BAG IV SCH ×2 (12:00→18:24)
[2024-08-05 12:04] LABS: URINE APPEARANCE Turbid; URINE BILIRUBIN 3+ (NEGATIVE); URINE COLOR Red; URINE GLUCOSE (UA) 2+ (NEGATIVE); URINE PROTEIN 3+ (NEGATIVE); URINE UROBILINOGEN 4.0 E.U/dl mg/dL (0.2-1.0)
[2024-08-05 12:34] LABS: LACTIC ACID 4.4 mmol/L (0.4-2.0)
[2024-08-05] MEDS: SODIUM CHLORIDE 500 ML IV STA (13:15)
[2024-08-05] MEDS ORDERED: VASopressin 40 UNITS/100 ML BAG IV SCH (13:15)
[2024-08-05 13:49] LABS: HEMATOCRIT 28.1 % (32.4-45.2); HEMOGLOBIN 8.6 GM/dL (10.7-15.3); MCH 28.4 pg (25.7-33.7); MCHC 30.6 g/dl (32.0-36.0); MEAN CELL VOLUME 92.9 fl (80-96); MEAN PLT VOLUME 8.8 fl (7.5-11.1); PLATELET COUNT 216 10^3/uL (134-434); RBC 3.03 M/mm3 (3.60-5.2); RDW 17.7 % (11.6-15.6); WHITE BLOOD COUNT 12.3 K/mm3 (4.0-10.0)
[2024-08-05 13:56] LABS: PROTHROMBIN TIME (PATIENT) 56.2 SEC (9.7-13.0)
[2024-08-05 14:13] LABS: INR 5.16 (0.83-1.09)
[2024-08-05 14:48] LABS: ANISOCYTOSIS 1+; MACROCYTOSIS 1+
[2024-08-05 17:01] LABS: LACTIC ACID 2.7 mmol/L (0.4-2.0)
[2024-08-05] MEDS ORDERED: LORazepam 2 MG/ML SDV VIAL IVPUSH PRN (17:06)
[2024-08-05] MEDS: MORPHINE 100mg/NS INFUSION 100 MG/100 ML MG IVPB SCH (17:47)
[2024-08-05] MEDS: SCOPOLAMINE HYDROBROMIDE 1 PATCH PATCH.TD72 TD SCH (17:47)
[2024-08-05] MEDS: LEVALBUTEROL HCL 0.63 MG/3 ML VIAL.NEB. IH SCH (18:24)
[2024-08-05] MEDS: PIPERACILLIN/TAZOB 2.25 GM 2.25 GM in DEXTROSE 5%-WATER - 50 ML IVPB SCH (18:24)
[2024-08-05 19:02] VITALS: TEMP 95
[2024-08-05 19:03] VITALS: BP 97/55; PULSE 79; RESP 20
[2024-08-05] MEDS ORDERED: ATORVASTATIN CA 80 MG TABLET (FP) PO SCH (22:00)
[2024-08-05] MEDS ORDERED: CHLORHEXIDINE GLUCONATE 4% CLEANSER FOR DECOLONIZATION TP SCH (22:00)
[2024-08-05] MEDS ORDERED: AMINO ACIDS/PROTEIN HYDROLYS 30 ML LIQUID.PKT PO SCH (22:00)
== END 2024-08-05 22:24 | disposition expired | DRG 871 ==
LOC: JER 15:08 → JERBED 20:51 → JICU 23:08
PROVIDERS: ADMIT Internal Medicine Pulmonary Disease; ATTEND Internal Medicine Pulmonary Disease
PROC: 05H733Z Insertion of Infusion Device into Right Axillary Vein, Percutaneous Approach (ICD-10-PCS; principal; 2024-08-05)
PROC: B54MZZA Ultrasonography of Right Upper Extremity Veins, Guidance (ICD-10-PCS; 2024-08-05)
DX: A41.9 Sepsis, unspecified organism (principal); G93.41 Metabolic encephalopathy; R65.21 Severe sepsis with septic shock; J96.01 Acute respiratory failure with hypoxia; J96.02 Acute respiratory failure with hypercapnia; K72.00 Acute and subacute hepatic failure without coma; J10.00 Influenza due to other identified influenza virus with unspecified type of pneumonia; J44.1 Chronic obstructive pulmonary disease with (acute) exacerbation; I47.19 Other supraventricular tachycardia; I50.22 Chronic systolic (congestive) heart failure; K62.5 Hemorrhage of anus and rectum; I24.89 Other forms of acute ischemic heart disease; D62 Acute posthemorrhagic anemia; E87.20 Acidosis, unspecified; J44.9 Chronic obstructive pulmonary disease, unspecified; I25.10 Atherosclerotic heart disease of native coronary artery without angina pectoris; I27.20 Pulmonary hypertension, unspecified; I48.0 Paroxysmal atrial fibrillation; Z79.01 Long term (current) use of anticoagulants; I25.2 Old myocardial infarction; I11.0 Hypertensive heart disease with heart failure; R31.9 Hematuria, unspecified; J10.1 Influenza due to other identified influenza virus with other respiratory manifestations
CPT/HCPCS: 0241U-QW; 36415; 36430; 36600; 70450-TC; 71045-TC-FY; 80053; 81003; 82248; 82803; 82962; 83605; 83735; 83880; 84100; 84439; 84443; 84484; 85025; 85027; 85610; 85730; 86850; 86900; 86901; 87040; 87086; 87186; 87481; 87899; 93005; 93010; 94660; 99285-25; J3490; P9017